=== PATIENT | female | born 1990 | race Caucasian/White ===

== ENCOUNTER 2020-11-25 20:06 | Emergency (ER) | payer MEDICAID, SELFPAY ==
[2020-11-25 20:07] VITALS: BP 146/86; PULSE 59; RESP 18; TEMP 37; O2SAT 100; BMI 34.8
--- NOTE | 2020-11-25 22:05 | CT_ITS ---
INDICATION: Pain EXAMINATION: CT Abdomen And Pelvis W/O Contrast Injection TECHNIQUE: Helically acquired images were obtained of the abdomen and pelvis without the use of IV contrast. A radiation dose optimization technique was used for this scan. Oral contrast: None. COMPARISON: None FINDINGS: Evaluation of the solid organs and vascular structures is limited without intravenous contrast. Visualized lung bases: Unremarkable Liver: Unremarkable Gallbladder: Unremarkable Spleen: Unremarkable Pancreas: Unremarkable Adrenal Glands: Unremarkable Kidneys: Unremarkable Vasculature: Unremarkable GI Tract: Status post gastric bypass surgery. Lymphadenopathy: None Peritoneum: No ascites. Bladder: Unremarkable Reproductive organs: Unremarkable Bones/Soft tissues: No suspicious osseous or soft tissue lesions CT/Abdomen/Pelvis without Cont IMPRESSION: No acute abnormalities in the abdomen or pelvis. Electronically Signed: Contreras Mccracken MD at 23:11 EDT Tel , Service support ,
--- NOTE | 2020-11-25 22:06 | EX.ED.DYSGE1 ---
HPI History of Present Illness Chief Complaint: Flank Pain Informant: patient Narrative Narrative: Patient presents with right flank pain. It started last night where she had flank pain and nausea relatively sudden onset. But it then went away after hot bath and rest. He came back this afternoon. Its been intermittent in terms of severity but never gone completely away. It is really centered in the right posterior flank area. Occasionally it radiates a little bit around toward the right lower quadrant but does not make it to the front. Nothing specifically makes it better or worse. She is also noted a little bit of blood in her urine a couple times today. Her last menstrual cycle was 1 week ago and she has no vaginal bleeding or discharge. She did have a kidney stone when she was 19 but none since. She has had a prior cholecystectomy. Nothing makes symptoms specifically better or worse. No chronic medical conditions No chronic medications Allergy are reviewed. Her allergy to NSAIDs is not due to a reaction but because she had gastric sleeve in the past. Surgeries: Gastric sleeve, cholecystectomy PFSH PFSH Allergy/AdvReac Type Severity Reaction Status Date / Time Iodinated Contrast Media Allergy Hives Verified 11/25/20 21:57 [CONTRASTS] Latex, Natural Rubber Allergy Rash Verified 11/25/20 21:57 lidocaine Allergy Rash Verified 11/25/20 21:57 NSAIDS (Non-Steroidal Allergy Upset Verified 11/25/20 21:57 Anti-Inflamma Stomach Social History Smoking Status: Never smoker ROS ROS ED Constitutional Constitutional ED: Denies chills, fever(s) or sweats Eyes Eyes: Denies change in vision ENT ENT ED: Denies rhinorrhea or sore throat Cardiovascular Cardiovascular: Denies chest pain Respiratory/Chest Respiratory/Chest: Denies cough, dyspnea or sputum Gastrointestinal Gastrointestinal: Reports nausea and vomiting; Denies constipation, diarrhea or melena Genitourinary Genitourinary ED: Reports dysuria, hematuria, urinary frequency and other Details: See history of present illness. Integumentary Denies rash Neurologic Neurologic: Denies paresthesias or weakness Endocrine Endocrinology: Denies polydipsia or polyuria Allergic/Immunologic Allergic/Immunologic ED: Denies urticaria EXAM Physical Exam Const Vital Signs: 11/25/20 20:07 11/26/20 01:00 Temperature 98.6 F Temperature Source Temporal Pulse Rate 59 L 62 Respiratory Rate 18 18 Blood Pressure 146/86 H 129/71 H Blood Pressure Mean 106 90 Pulse Ox 100 99 Oxygen Delivery Method Room Air Positive well nourished, well developed and obese Constitutional Narrative: Patient is holding an emesis bag which is currently empty. She does look like she does not feel well. General Appearance ED: well developed Nutritional Appearance: obese HEENT Reports dry mucous membranes Mouth ED: Yes dry mucous membranes Mouth: dry mucous membranes Eyes General Eye ED: Negative for pale conjunctiva or scleral icterus Neck no JVD Chest Wall inspection of chest normal Resp normal respiratory effort and clear to auscultation bilaterally Effort and Inspection: Negative for pain with movement Cardio regular rate and regular rhythm GI normal to inspection, nondistended, normoactive bowel sounds, non-tender and non-distended Palpation: soft Back/Spine Back/Spine Narrative: She does have some right CVA tenderness only with deeper palpation but not with soft touch. General Back: CVA tenderness Extremity General Extremety ED: Negative for edema or tenderness General Extremity: Negative for edema Neuro Sensorium / Orientation: alert Psych mental status grossly normal Skin no rashes or lesions noted Skin Narrative: No vesicles. MDM MDM MDM Narrative Medical decision making narrative: Patient's labs show normal white count. Mild nonspecific anemia. Electrolytes are overall unremarkable. is negative. Patient had told me she had cholecystectomy but had forgotten about the hysterectomy. We have added further meds for pain and nausea. However there is been no vomiting here. I did do an online prescribing report. I was surprised to find that the patient has 3 prescriptions for controlled substances this month. Most recent prescriptions were on the and 16 of this month for oxycodone. I tried to do a clinic thank search but cannot find any visits for this patient. We are awaiting CT scan results. CT shows no acute process. Again, blood work is unremarkable. I did online prescribing report. I noticed that the patient has in 2 years 40 prescriptions for controlled substances from 23 providers in 6 pharmacies. I discussed this with her. She states that this cannot be accurate. She used to be on gabapentin but has not been on it for 6 or 7 months. I explained that she just had a prescription filled at [facility] in [place] on the fifth of this month but it was written back in August. If this is not accurate she should check with [facility] and find out who is using her name to fill prescriptions. She is comfortable going home. I think this is likely muscular back pain. She now states she does get muscular back pain a lot. She also states that she already has Phenergan and Zofran because she has chronic problems with nausea and vomiting. I think she is safe for discharge. She has tizanidine, Tylenol, Zofran and Phenergan at home and these are appropriate to use. Lab Data Attestation: I reviewed the patient's lab results. Labs: Laboratory Results - last 24 hr 11/25/20 11/25/20 11/25/20 21:50 21:50 21:50 WBC 6.9 RBC 4.28 Hgb 11.0 L Hct 34.8 L MCV 81.3 MCH 25.7 L MCHC 31.6 L RDW Std Deviation 41.9 RDW Coeff of [place] 14.3 Plt Count 260 MPV 9.9 Immature Gran % (Auto) 0.300 Neut % (Auto) 59.2 Lymph % (Auto) 31.6 [place] % (Auto) 6.8 Eos % (Auto) 1.4 Baso % (Auto) 0.7 Absolute Neuts (auto) 4.1 Absolute Lymphs (auto) 2.19 Nucleated RBC % 0 Sodium 138 Potassium 4.5 Chloride 108 H Carbon Dioxide 25.0 Anion Gap 5 BUN 6 L Creatinine 0.68 Estim Creat Clear Calc 115.31 Est GFR (MDRD) Af Amer 134 Est GFR (MDRD) Non-Af 110 BUN/Creatinine Ratio 8.9 L Glucose 93 Calcium 8.9 Serum , Qual NEGATIVE Urine Color Urine Clarity Urine pH Ur Specific [place] Urine Protein Urine Glucose (UA) Urine Ketones Urine Occult Blood Urine Nitrite Urine Bilirubin Urine Urobilinogen Ur Leukocyte Esterase Urine RBC Urine WBC Ur Squamous Epith Cells Urine Bacteria Urine Mucus 11/25/20 11/25/20 21:50 23:36 WBC RBC Hgb Hct MCV MCH MCHC RDW Std Deviation RDW Coeff of [place] Plt Count MPV Immature Gran % (Auto) Neut % (Auto) Lymph % (Auto) [place] % (Auto) Eos % (Auto) Baso % (Auto) Absolute Neuts (auto) Absolute Lymphs (auto) Nucleated RBC % Sodium Potassium Chloride Carbon Dioxide Anion Gap BUN Creatinine Estim Creat Clear Calc Est GFR (MDRD) Af Amer Est GFR (MDRD) Non-Af BUN/Creatinine Ratio Glucose Calcium Serum , Qual Cancelled Urine Color Yellow Urine Clarity Clear Urine pH 6.0 Ur Specific [place] 1.015 Urine Protein 15 H Urine Glucose (UA) Normal Urine Ketones Negative Urine Occult Blood Negative Urine Nitrite Negative Urine Bilirubin Negative Urine Urobilinogen Normal Ur Leukocyte Esterase 25 H Urine RBC 0-5 SEEN Urine WBC 0-5 SEEN Ur Squamous Epith Cells 5-10 SEEN Urine Bacteria 1+ Urine Mucus 2+ Radiography Diagnostic Testing: Radiology Impression Abdomen/Pelvis CT 11/25/20 22:05 IMPRESSION: No acute abnormalities in the abdomen or pelvis. Electronically Signed: Contreras Mccracken MD at 23:11 EDT Tel , Service support , Discharge Plan Triage Chief Complaint: Flank Pain ED Provider: Kaleb Francois Dx/Rx/DC Orders Clinical Impression: Back pain Instructions: ED Back Pain (Acute or Chronic) Primary Care Provider: Care Physician,No Primary Referrals: Jones Freeman MD [STAFF PHYSICIAN] - 1-2 Weeks Care Physician,No Primary [Primary Care Provider] - Disposition Disposition: Home, Self Care
[2020-11-25 22:09] LABS: Internal QC Validated? YES +Cl - CLEAR BKGD; Pregnancy, Serum, hCG Quali. NEGATIVE Negative
[2020-11-25] MEDS: 0.9% Normal Saline 1,000 ML 1000 ML IV (22:22)
[2020-11-25] MEDS: Ketorolac 15 MG/ML Vial IV (22:22)
[2020-11-25] MEDS: Ondansetron 4 MG/2 ML Vial IV (22:22)
[2020-11-25] MEDS: Morphine 4 MG/ML Syringe IV ×2 (22:23→23:48)
[2020-11-25 23:02] LABS: Absolute Lymphocyte Count 2.19 X10^3/uL (0.83-4.51); Absolute Neutrophil Count 4.1 X10^3/uL (2.0-7.7); Basophil# 0.05 X10^3/uL; Basophil% 0.7 % (0-1); Eosinophils% 1.4 % (0-5); Hematocrit 34.8 % (37-47); Lymphocyte # 2.19 X10^3/ul (0.83-4.51); Lymphocyte % 31.6 % (19-41); Mean Corp Hgb Conc 31.6 g/dL (32-36); Mean Corpuscular Hgb 25.7 pg (27.0-32.0); Mean Corpuscular Volume 81.3 fL (81-99); Mean Platelet Vol. 9.9 fl (6.2-12.0); Monocyte# 0.47 X10^3/uL; Monocyte% 6.8 % (0-10); NRBC Flagged by Analyzer 0 % (0-5); Neutrophil # 4.11 X10^3/uL (2.7-7.7); Neutrophil % 59.2 % (47-70); Platelet Count 260 K/mm3 (150-450); RBC Distribution Width CV 14.3 % (11.6-14.6); RBC Distribution Width SD 41.9 fl (35.1-43.9); Red Blood Count 4.28 M/mm3 (4.2-5.4); White Blood Count 6.9 K/mm3 (4.4-11.0)
[2020-11-25 23:15] LABS: Anion Gap 5 (5-15); BUN 6 mg/dL (7-18); BUN/Creat Ratio 8.9 RATIO (10-20); Calcium,Total 8.9 mg/dL (8.5-10.1); Chloride 108 mmol/L (98-107); Creatinine, Serum 0.68 mg/dL (0.55-1.02); EST Glomerular Filtration Rate 110 mL/min (>60); Est Glom Filt Rate - Afr Amer 134 mL/min (>60); Estimated Creatinine Clearance 115.31 ml/min; Glucose 93 mg/dL (74-106); Potassium 4.5 mmol/L (3.5-5.1); Sodium Level 138 mmol/L (136-145)
[2020-11-25] MEDS: proMETHazine 25 MG/ML Syringe 12.5 MG IM (23:48)
[2020-11-26 00:15] LABS: Color, Urine Yellow (Yellow); Glucose, Dipstick Normal (Normal); Ketone-Dipstick Negative (Negative); Leukocyte Esterase-Dipstick 25 /ul (Negative); Nitrite-Dipstick Negative (Negative); Occult Blood-Urine Negative /ul (Negative); Protein-Dipstick 15 mg/dl (Negative); Specific Gravity, Urine 1.015 (1.002-1.030); Urine Bilirubin Dipstick Negative (Negative); Urine Clarity Clear (Clear); Urine Urobilinogen Normal (Normal)
[2020-11-26 00:17] LABS: Bacteria 1+ /hpf (None Seen); Mucous, Urine 2+ /hpf (<or=2+); Red Blood Cells-Urine 0-5 SEEN /hpf (0-5); Squamous Epithelial Cells - UA 5-10 SEEN /hpf (5-10); White Blood Cells 0-5 SEEN /hpf (0-5)
[2020-11-26] MEDS: 0.9% Normal Saline 1,000 ML 999 ML IV (00:32)
[2020-11-26 01:00] VITALS: BP 129/71; PULSE 62; RESP 18; O2SAT 99
== END 2020-11-26 01:45 | disposition home or self-care (01) ==
PROVIDERS: Emergency Provider Emergency Medicine
DX: M54.9 Dorsalgia, unspecified (principal); E66.9 Obesity, unspecified; Z90.49 Acquired absence of other specified parts of digestive tract
CPT/HCPCS: 74176; 80048; 81001; 84703; 85025; 96361; 96372; 96374; 96375; 96376; 99284; J7030; J2405

== ENCOUNTER 2020-12-04 21:24 | Emergency (ER) | payer MEDICAID, SELFPAY ==
[2020-12-04 21:25] VITALS: BP 122/74; PULSE 107; RESP 18; TEMP 35.8; O2SAT 100; BMI 30.7
--- NOTE | 2020-12-04 21:30 | RAD_ITS ---
EXAM: XR CHEST, 1 VIEW CLINICAL INDICATION: COUGH TECHNIQUE: Frontal view of the chest. This report was created using [employer] report generation technology. COMPARISON: None. FINDINGS: LUNGS AND PLEURAL SPACES: Unremarkable. No consolidation or edema. No pneumothorax. No effusion. HEART: Unremarkable. Cardiac silhouette not enlarged. MEDIASTINUM: Central airways and mediastinal contour are unremarkable. BONES/JOINTS: Unremarkable. SOFT TISSUES: Unremarkable. RAD/Chest 1 View IMPRESSION: No radiographic evidence of acute cardiopulmonary disease. Electronically Signed: Cal Lynn MD at 21:49 EDT , Service support ,
--- NOTE | 2020-12-04 22:41 | EDS_ITS ---
HPI History of Present Illness Chief Complaint: Abd Pain Informant: patient Narrative Narrative: 30-year-old female states that on Wednesday she began to have cold symptoms. She noted a sore throat some rhinorrhea and cough. She states she feels very chilled. She is also developed some nausea vomiting. She states that she has been exposed to Covid. No diarrhea. She describes the rhinorrhea is yellow to green. Cough is otherwise nonproductive. She notes a periumbilical to right-sided abdominal pain. PFSH PFSH Medical History (Updated 12/04/20 @ 23:[address] Venu Yeung DO) Kidney stone Ovarian cyst Home Medications promethazine 25 mg PO Q6H PRN PRN #10 tablet 12/04/20 [Rx Last Taken Unknown] Allergy/AdvReac Type Severity Reaction Status Date / Time Iodinated Contrast Media Allergy Hives Verified 11/25/20 21:57 [CONTRASTS] Latex, Natural Rubber Allergy Rash Verified 11/25/20 21:57 lidocaine Allergy Rash Verified 11/25/20 21:57 NSAIDS (Non-Steroidal Allergy Upset Verified 11/25/20 21:57 Anti-Inflamma Stomach Surgical History (Updated 12/04/20 @ 23:20 by Miriam Lynn) Hx of cholecystectomy Social History (Updated 12/04/20 @ 22:[address] Venu Yeung DO) Smoking Status: Never smoker substance use type: does not use ROS ROS ED Constitutional Constitutional ED: Reports chills and sweats; Denies weight loss Eyes Eyes: Denies change in vision or diplopia ENT ENT ED: Reports rhinorrhea and sore throat; Denies ear pain Cardiovascular Cardiovascular: Denies chest pain, orthopnea, palpitations or racing heartbeat Respiratory/Chest Respiratory/Chest: Reports cough and dyspnea; Denies orthopnea Gastrointestinal Gastrointestinal: Reports abdominal pain, nausea and vomiting; Denies diarrhea Genitourinary Genitourinary ED: Denies dysuria, hematuria or urinary frequency Musculoskeletal Musculoskeletal: Denies arthralgias or myalgias Integumentary Denies abscess or rash Neurologic Neurologic: Denies headache(s) or weakness Psychiatric Psychiatric: Denies anxiety, depression, suicidal ideation or suicidal thoughts Endocrine Endocrinology: Denies polydipsia, polyphagia or polyuria Allergic/Immunologic Allergic/Immunologic ED: Denies mouth swelling, tongue swelling or urticaria EXAM Physical Exam Const Vital Signs: 12/04/20 21:25 Temperature 96.5 F L Temperature Source Temporal Pulse Rate 107 H Respiratory Rate 18 Blood Pressure 122/74 H Blood Pressure Mean 90 Pulse Ox 100 Oxygen Delivery Method Room Air Positive well nourished, well developed and obese General Appearance ED: well developed Nutritional Appearance: obese HEENT Reports normocephalic, head/scalp atraumatic and moist mucous membranes Eyes PERRL and EOMs intact bilaterally Neck no lymphadenopathy, supple and no JVD Resp normal respiratory effort and clear to auscultation bilaterally Cardio regular rate, regular rhythm and no murmurs GI Auscultation: normoactive bowel sounds Palpation: soft and tender RLQ and periumbilical Back/Spine no CVA tenderness and normal ROM Extremity normal to inspection General Extremety ED: Negative for edema General Extremity: Negative for edema Neuro oriented x3 and CN's II-XII intact bilaterally Sensorium / Orientation: alert Motor Exam: strength 5/5 throughout Psych Mood & Affect: tearful; Negative for depressed Skin no rashes or lesions noted and no wounds MDM MDM MDM Narrative Medical decision making narrative: Patient did not inform me that she was just here in the emergency room. I did review that visit. At that time she did have a CT that was negative. Tonight's her white count was normal at 9.4 with no shift. CMP and lipase are normal. Urinalysis demonstrates no ketones and no obvious infection. Patient received IV fluids Zofran and Bentyl. She was not very happy with this. I do have some concerns because she is very focused on pain and I would refer readers of this note to her previous ED note. I talked with the patient regarding her normal labs and she states that she is very frustrated at this point and just wants to leave. Lab Data Attestation: I reviewed the patient's lab results. Labs: Laboratory Results - last 24 hr 12/04/20 12/04/20 12/04/20 22:50 23:07 23:07 WBC 9.4 RBC 4.31 Hgb 10.9 L Hct 34.2 L MCV 79.4 L MCH 25.3 L MCHC 31.9 L RDW Std Deviation 39.4 RDW Coeff of Chikis 13.5 Plt Count 233 MPV 9.9 Immature Gran % (Auto) 1.400 H Neut % (Auto) 68.6 Lymph % (Auto) 16.6 L [place] % (Auto) 10.4 H Eos % (Auto) 2.3 Baso % (Auto) 0.7 Absolute Neuts (auto) 6.4 Absolute Lymphs (auto) 1.56 Nucleated RBC % 0 Sodium 140 Potassium 3.8 Chloride 107 Carbon Dioxide 25.0 Anion Gap 8 BUN 4 L Creatinine 0.72 Estim Creat Clear Calc 108.90 Est GFR (MDRD) Af Amer 125 Est GFR (MDRD) Non-Af 103 BUN/Creatinine Ratio 5.6 L Glucose 97 Calcium 9.2 Total Bilirubin 0.20 AST 22 ALT 28 Alkaline Phosphatase 127 H Total Protein 7.6 Albumin 3.4 Globulin 4.2 Albumin/Globulin Ratio 0.8 L Lipase 121 Serum , Qual Urine Color Yellow Urine Clarity Clear Urine pH 6.0 Ur Specific [place] 1.020 Urine Protein Negative Urine Glucose (UA) Normal Urine Ketones Negative Urine Occult Blood 10 H Urine Nitrite Negative Urine Bilirubin Negative Urine Urobilinogen Normal Ur Leukocyte Esterase Negative Urine RBC 0-5 SEEN Urine WBC 0-5 SEEN Ur Squamous Epith Cells 5-10 SEEN Urine Bacteria 0 SEEN Urine Mucus 0 SEEN 12/04/20 23:15 WBC RBC Hgb Hct MCV MCH MCHC RDW Std Deviation RDW Coeff of [place]ikis Plt Count MPV Immature Gran % (Auto) Neut % (Auto) Lymph % (Auto) [place] % (Auto) Eos % (Auto) Baso % (Auto) Absolute Neuts (auto) Absolute Lymphs (auto) Nucleated RBC % Sodium Potassium Chloride Carbon Dioxide Anion Gap BUN Creatinine Estim Creat Clear Calc Est GFR (MDRD) Af Amer Est GFR (MDRD) Non-Af BUN/Creatinine Ratio Glucose Calcium Total Bilirubin AST ALT Alkaline Phosphatase Total Protein Albumin Globulin Albumin/Globulin Ratio Lipase Serum , Qual NEGATIVE Urine Color Urine Clarity Urine pH Ur Specific [place] Urine Protein Urine Glucose (UA) Urine Ketones Urine Occult Blood Urine Nitrite Urine Bilirubin Urine Urobilinogen Ur Leukocyte Esterase Urine RBC Urine WBC Ur Squamous Epith Cells Urine Bacteria Urine Mucus Radiography Diagnostic Testing: Radiology Impression Chest X-Ray 12/04/20 21:30 IMPRESSION: No radiographic evidence of acute cardiopulmonary disease. Electronically Signed: Cal Lynn MD at 21:49 EDT , Service support , Discharge Plan Triage Chief Complaint: Abd Pain ED Provider: Venu Yeung Dx/Rx/DC Orders Clinical Impression: Abdominal pain, acute, Vomiting, URI (upper respiratory infection) Instructions: ED Vomiting (Adult) Prescriptions: New promethazine [promethazine] 25 MG tablet 25 mg PO Q6H PRN PRN (Reason: Nausea) Qty: 10 RF: 0 Primary Care Provider: Care Physician,No Primary Referrals: Care Physician,No Primary [Primary Care Provider] - Activity Restrictions/Additional Instructions: Please contact your insurance company to find out who your primary care doctor is. I recommend you following up with them. Disposition Disposition: Home, Self Care
[2020-12-04] MEDS: 0.9% Normal Saline 1,000 ML 1000 ML IV (23:05)
[2020-12-04] MEDS: Dicyclomine 20 MG/2 ML Vial IM (23:06)
[2020-12-04] MEDS: Ondansetron 4 MG/2 ML Vial IV (23:06)
[2020-12-04 23:14] LABS: Bacteria 0 SEEN /hpf (None Seen); Mucous, Urine 0 SEEN /hpf (<or=2+)
[2020-12-04 23:15] LABS: Color, Urine Yellow (Yellow); Glucose, Dipstick Normal (Normal); Ketone-Dipstick Negative (Negative); Leukocyte Esterase-Dipstick Negative /ul (Negative); Nitrite-Dipstick Negative (Negative); Occult Blood-Urine 10 /ul (Negative); Protein-Dipstick Negative (Negative); Urine Bilirubin Dipstick Negative (Negative); Urine Clarity Clear (Clear); Urine Urobilinogen Normal (Normal)
[2020-12-04 23:23] LABS: Red Blood Cells-Urine 0-5 SEEN /hpf (0-5); Squamous Epithelial Cells - UA 5-10 SEEN /hpf (5-10); White Blood Cells 0-5 SEEN /hpf (0-5)
[2020-12-04 23:31] LABS: Absolute Lymphocyte Count 1.56 X10^3/uL (0.83-4.51); Absolute Neutrophil Count 6.4 X10^3/uL (2.0-7.7); Basophil# 0.07 X10^3/uL; Basophil% 0.7 % (0-1); Eosinophil# 0.22 X10^3/uL; Eosinophils% 2.3 % (0-5); Hematocrit 34.2 % (37-47); Hemoglobin 10.9 g/dL (12.0-15.0); Lymphocyte # 1.56 X10^3/ul (0.83-4.51); Lymphocyte % 16.6 % (19-41); Mean Corp Hgb Conc 31.9 g/dL (32-36); Mean Corpuscular Hgb 25.3 pg (27.0-32.0); Mean Corpuscular Volume 79.4 fL (81-99); Mean Platelet Vol. 9.9 fl (6.2-12.0); Monocyte# 0.98 X10^3/uL; Monocyte% 10.4 % (0-10); NRBC Flagged by Analyzer 0 % (0-5); Neutrophil # 6.44 X10^3/uL (2.7-7.7); Neutrophil % 68.6 % (47-70); Platelet Count 233 K/mm3 (150-450); RBC Distribution Width CV 13.5 % (11.6-14.6); RBC Distribution Width SD 39.4 fl (35.1-43.9); Red Blood Count 4.31 M/mm3 (4.2-5.4); White Blood Count 9.4 K/mm3 (4.4-11.0)
[2020-12-04 23:31] LABS: Internal QC Validated? YES +Cl - CLEAR BKGD; Pregnancy, Serum, hCG Quali. NEGATIVE Negative
[2020-12-04 23:38] LABS: ALB/GLOB Ratio 0.8 RATIO (0.9-2.4); AST(SGOT) 22 U/L (15-37); Alanine Aminotransfer ALT/SGPT 28 U/L (13-56); Albumin, Serum 3.4 g/dL (3.2-5.0); Alkaline Phosphatase 127 U/L (45-117); Anion Gap 8 (5-15); BUN 4 mg/dL (7-18); BUN/Creat Ratio 5.6 RATIO (10-20); Calcium,Total 9.2 mg/dL (8.5-10.1); Chloride 107 mmol/L (98-107); Creatinine, Serum 0.72 mg/dL (0.55-1.02); EST Glomerular Filtration Rate 103 mL/min (>60); Est Glom Filt Rate - Afr Amer 125 mL/min (>60); Globulin 4.2 g/dL (2.2-4.2); Glucose 97 mg/dL (74-106); Lipase 121 U/L (73-393); Potassium 3.8 mmol/L (3.5-5.1); Protein, Total 7.6 g/dL (6.4-8.2); Sodium Level 140 mmol/L (136-145)
--- NOTE | 2020-12-05 00:09 | ED.RN ---
PT CALLED OUT SEVERAL TIMES FOR DIFFERENT MEDICATIONS, STATES ZOFRAN AND BENTYL DID NOT WORK. ENCOURAGED PT TO WAIT AND GIVE MEDS MORE TIME TO WORK SINCE AT THAT TIME MEDS HAD ONLY BEEN GIVEN 40 MIN PRIOR. PT CALLED SEVERAL MORE TIMES FOR MEDS, MD AWARE. PT HAD INITIALLY REFUSED ZOFRAN AND BENTYL, STATING THOSE NEVER WORK FOR ME, THIS RN HAD ENCOURAGED PT TO TRY MEDS AGAIN SINCE THEY WOULD BE GIVEN IN IV AND IM FORM THEREFORE POTENTIALLY MORE EFFECTIVE. PT CALLED OUT AFTER MD OUT OF ROOM FOR DISCHARGE, STATING I'M GETTING THE FUCK OUT OF HERE SINCE YOU GUYS WON'T HELP ME. PT FURTHER YELLING THAT SHE WAS PULLING HER OWN IV OUT AND DID NOT WANT DISCHARGE PAPERS. THIS RN WENT INTO ROOM AND REMOVED IV, SITE INTACT. ATTEMPTED TO EXPLAIN WHY STRONGER MEDS WERE NOT GIVEN TO PT. SHE CONTINUED TO YELL AND CURSE AT THIS RN, THREW DISCHARGE PAPERS ON BED. PT AMBULATED OUT OF DEPARTMENT YELLING I'M GOING TO REPORT EVERY ONE OF YOU FUCKERS.
== END 2020-12-05 00:16 | disposition home or self-care (01) ==
PROVIDERS: Emergency Provider Emergency Medicine
DX: R10.9 Unspecified abdominal pain (principal); R11.2 Nausea with vomiting, unspecified; J06.9 Acute upper respiratory infection, unspecified; E66.9 Obesity, unspecified
CPT/HCPCS: 71045; 80053; 81001; 83690; 84703; 85025; 87426; 96372; 96374; 99283; J7030; J2405

== ENCOUNTER 2021-07-26 21:21 | Emergency (ER) | payer MEDICAID, SELFPAY ==
[2021-07-26 21:23] VITALS: BP 125/86; PULSE 101; RESP 14; TEMP 36.7; O2SAT 97; BMI 34.9
--- NOTE | 2021-07-26 22:52 | EDS_ITS ---
HPI History of Present Illness Chief Complaint: Flank Pain Informant: patient Onset/Context/Timing Onset: Today Context: Gradual Onset Timing: Continuous Quality: Sharp Location: Right flank Worsened by: Nothing Relieved by: Nothing Narrative Narrative: Patient presents with right flank pain, nausea, and vomiting that began today. Patient states it began when she woke up this morning. Patient states it is gradually getting worse. Patient states she started with nausea and vomiting then developed the right flank pain later in the day. Patient describes her pain as sharp. Patient states nothing makes it better nothing makes it worse. Patient admits to some urinary frequency, dysuria, and hematuria. Patient denies any hematemesis or coffee-ground emesis. Patient denies any diarrhea, melena, or hematochezia. PFSH PFS Medical History Kidney stone Ovarian cyst Home Medications promethazine 25 mg PO Q6H PRN PRN #10 tablet 12/04/20 [Rx Last Taken Unknown] gabapentin 300 mg PO TID 07/26/21 [History Last Taken Unknown] quetiapine [Seroquel] 100 mg PO QHS 07/26/21 [History Last Taken Unknown] tizanidine 4 mg PO TID PRN 07/26/21 [History Last Taken Unknown] Allergy/AdvReac Type Severity Reaction Status Date / Time Iodinated Contrast Media Allergy Hives Verified 07/26/21 21:23 [CONTRASTS] Latex, Natural Rubber Allergy Rash Verified 07/26/21 21:23 lidocaine Allergy Rash Verified 07/26/21 21:23 NSAIDS (Non-Steroidal Allergy Upset Verified 07/26/21 21:23 Anti-Inflamma Stomach Surgical History Hx of cholecystectomy Social History Smoking Status: Never smoker substance use type: does not use ROS ROS ED Constitutional Constitutional ED: Denies chills or fever(s) Eyes Eyes: Denies blurry vision or change in vision ENT ENT ED: Denies rhinorrhea or sore throat Cardiovascular Cardiovascular: Denies chest pain or palpitations Respiratory/Chest Respiratory/Chest: Denies cough or dyspnea Gastrointestinal Gastrointestinal: Reports nausea and vomiting Genitourinary Genitourinary ED: Reports dysuria, hematuria and urinary frequency Musculoskeletal Musculoskeletal: Reports back pain; Denies neck pain Integumentary Denies abscess or rash Neurologic Neurologic: Denies headache(s) or weakness Allergic/Immunologic Allergic/Immunologic ED: Denies mouth swelling or urticaria EXAM Physical Exam Const Vital Signs: 07/26/21 21:23 07/26/21 23:31 Temperature 98.1 F Temperature Source Temporal Pulse Rate 101 H 134 H Respiratory Rate 14 20 H Blood Pressure 125/86 H 119/107 H Blood Pressure Mean 99 111 Pulse Ox 97 98 Oxygen Delivery Method Room Air Room Air Positive well nourished, well developed and obese General Appearance ED: well developed and NAD Nutritional Appearance: obese HEENT Reports moist mucous membranes Neck supple and no JVD Resp normal respiratory effort and clear to auscultation bilaterally Cardio regular rate and regular rhythm GI normal to inspection, nondistended, normoactive bowel sounds Palpation: soft and tender RLQ and RUQ; Negative for guarding or rebound tenderness present Back/Spine General Back: CVA tenderness right Neuro oriented x3, CN's II-XII intact bilaterally and no sensory deficits noted Sensorium / Orientation: alert Motor Exam: strength 5/5 throughout Psych mental status grossly normal MDM MDM MDM Narrative Medical decision making narrative: Patient was given IV fluids, morphine, and Zofran. CBC shows a mild anemia with hemoglobin of 9.2 and hematocrit 31.6. Th is is consistent with prior results. Comprehensive metabolic profile was obtained and was essentially within normal limits. Serum hCG was negative. Urinalysis does not show any evidence of urinary tract infection or hematuria. CT scan of the abdomen pelvis was obtained. There is feces throughout the colon. There is no ureteral calculus or obstruction. There is no acute abnormality noted. This was interpreted by the radiologist and reviewed by myself. Patient was given a repeat dose of morphine and Zofran here. Patient was instructed to take Tylenol as needed for pain. Patient was instructed to take MiraLAX as needed for constipation. Patient was instructed to follow-up with her primary care physician in 3 to 5 days. Patient understood and was agreeable with the plan. All questions were answered. Lab Data Attestation: I reviewed the patient's lab results. Labs: Laboratory Results - last 24 hr 07/26/21 07/26/21 07/26/21 23:10 23:10 23:10 WBC 6.4 RBC 4.49 Hgb 9.2 L Hct 31.6 L MCV 70.4 L MCH 20.5 L MCHC 29.1 L RDW Std Deviation 45.8 H RDW Coeff of Chikis 18.1 H Plt Count 287 MPV 9.3 Immature Gran % (Auto) 1.100 H Neut % (Auto) 51.1 Lymph % (Auto) 35.9 [place] % (Auto) 9.1 Eos % (Auto) 1.7 Baso % (Auto) 1.1 H Absolute Neuts (auto) 3.2 Absolute Lymphs (auto) 2.28 Nucleated RBC % 0 Sodium 139 Potassium 3.5 Chloride 108 H Carbon Dioxide 25.0 Anion Gap 6 BUN 5 L Creatinine 0.60 Estim Creat Clear Calc 125.61 Est GFR (MDRD) Af Amer 152 Est GFR (MDRD) Non-Af 125 BUN/Creatinine Ratio 8.3 L Glucose 83 Calcium 8.9 Total Bilirubin 0.30 AST 52 H ALT 61 H Alkaline Phosphatase 158 H Total Protein 7.4 Albumin 3.7 Globulin 3.7 Albumin/Globulin Ratio 1.0 Serum , Qual NEGATIVE Urine Color Urine Clarity Urine pH Ur Specific [place] Urine Protein Urine Glucose (UA) Urine Ketones Urine Occult Blood Urine Nitrite Urine Bilirubin Urine Urobilinogen Ur Leukocyte Esterase Urine RBC Urine WBC Ur Squamous Epith Cells Urine Bacteria Urine Mucus 07/26/21 23:15 WBC RBC Hgb Hct MCV MCH MCHC RDW Std Deviation RDW Coeff of [place] Plt Count MPV Immature Gran % (Auto) Neut % (Auto) Lymph % (Auto) [place] % (Auto) Eos % (Auto) Baso % (Auto) Absolute Neuts (auto) Absolute Lymphs (auto) Nucleated RBC % Sodium Potassium Chloride Carbon Dioxide Anion Gap BUN Creatinine Estim Creat Clear Calc Est GFR (MDRD) Af Amer Est GFR (MDRD) Non-Af BUN/Creatinine Ratio Glucose Calcium Total Bilirubin AST ALT Alkaline Phosphatase Total Protein Albumin Globulin Albumin/Globulin Ratio Serum , Qual Urine Color Yellow Urine Clarity Clear Urine pH 6.0 Ur Specific [place] 1.020 Urine Protein 30 H Urine Glucose (UA) Normal Urine Ketones 5 H Urine Occult Blood 10 H Urine Nitrite Negative Urine Bilirubin Negative Urine Urobilinogen 1 H Ur Leukocyte Esterase 25 H Urine RBC 0 SEEN Urine WBC 0 SEEN Ur Squamous Epith Cells 0-5 SEEN Urine Bacteria 0 SEEN Urine Mucus 2+ Radiography Diagnostic Testing: Clinical Impression(s) from Imaging Studies Abdomen/Pelvis CT 07/26/21 22:55 IMPRESSION: No acute findings in the abdomen or pelvis. Colonic fecal burden suggest clinical constipation. Electronically Signed: Myke Schmitt MD at 0:19 EDT Reading Location ID and State: [address] [place] [address] Tel , Service support , Discharge Plan Triage Chief Complaint: Flank Pain ED Provider: Franco Shaver Dx/Rx/DC Orders Clinical Impression: Abdominal pain, Constipation Instructions: ED Abdominal Pain Unkn Cause Fem, ED Constipation (Adult) Prescriptions: No Action promethazine [promethazine] 25 MG tablet 25 mg PO Q6H PRN PRN (Reason: Nausea) Qty: 10 RF: 0 quetiapine [Seroquel] 100 mg Tablet 100 mg PO QHS RF: 0 gabapentin 300 mg Tablet 300 mg PO TID RF: 0 tizanidine 4 mg Capsule 4 mg PO TID PRN (Reason: pain) RF: 0 Primary Care Provider: Care Physician,No Primary Referrals: Franco Fermin MD [STAFF PHYSICIAN] - 3-5 Days Care Physician,No Primary [Primary Care Provider] - Disposition Disposition: Home, Self Care
--- NOTE | 2021-07-26 22:55 | CT_ITS ---
INDICATION: Right flank pain EXAMINATION: CT ABDOMEN AND PELVIS WITHOUT CONTRAST - CT Abdomen And Pelvis W/O Contrast Injection TECHNIQUE: Helically acquired images were obtained of the abdomen and pelvis without oral or IV contrast. A radiation dose optimization technique was used for this scan. IV Contrast dosage and agent: None. Oral contrast: None. COMPARISON: 11/25/2020 FINDINGS: LOWER CHEST: Lung bases are clear. No cardiomegaly or pericardial effusion. Small hiatal hernia. LIVER: Homogeneous. No focal mass. GALLBLADDER AND BILIARY TREE: Cholecystectomy. No intra- or extrahepatic biliary ductal dilation. PANCREAS: No focal cystic or solid mass. SPLEEN: Normal size without focal cystic or solid mass. ADRENAL GLANDS: No nodules. KIDNEYS AND URETERS: Normal renal size and position. No hydronephrosis. PERITONEUM: No ascites or free air. BOWEL: Normal appendix. No stomach or bowel distension. Diffusely increased colonic fecal burden. Changes from prior gastric surgery again noted. LYMPH NODES: No enlarged mesenteric or retroperitoneal lymph nodes. VESSELS: Aorta is non-dilated. URINARY BLADDER: Unremarkable. REPRODUCTIVE ORGANS: No pelvic masses. ABDOMINAL WALL: No discrete abdominal or pelvic wall hernia. BONES: No acute or aggressive abnormality. CT/Abdomen/Pelvis without Cont IMPRESSION: No acute findings in the abdomen or pelvis. Colonic fecal burden suggest clinical constipation. Electronically Signed: Myke Schmitt MD at 0:19 EDT ,
[2021-07-26] MEDS: 0.9% Normal Saline 1,000 ML 1000 ML IV (23:09)
[2021-07-26] MEDS: Ondansetron 4 MG/2 ML Vial IV (23:10)
[2021-07-26] MEDS: Morphine 4 MG/ML Syringe IV (23:10)
[2021-07-26 23:23] LABS: Bacteria 0 SEEN /hpf (None Seen); Color, Urine Yellow (Yellow); Glucose, Dipstick Normal (Normal); Ketone-Dipstick 5 mg/dl (Negative); Leukocyte Esterase-Dipstick 25 /ul (Negative); Nitrite-Dipstick Negative (Negative); Occult Blood-Urine 10 /ul (Negative); Protein-Dipstick 30 mg/dl (Negative); Red Blood Cells-Urine 0 SEEN /hpf (0-5); Urine Bilirubin Dipstick Negative (Negative); Urine Clarity Clear (Clear); Urine Urobilinogen 1 mg/dl (Normal); White Blood Cells 0 SEEN /hpf (0-5)
[2021-07-26 23:29] LABS: Mucous, Urine 2+ /hpf (<or=2+); Squamous Epithelial Cells - UA 0-5 SEEN /hpf (5-10)
[2021-07-26 23:29] LABS: Internal QC Validated? YES +Cl - CLEAR BKGD; Pregnancy, Serum, hCG Quali. NEGATIVE Negative
[2021-07-26 23:31] VITALS: BP 119/107; PULSE 134; RESP 20; O2SAT 98
[2021-07-26 23:36] LABS: Absolute Lymphocyte Count 2.28 X10^3/uL (0.83-4.51); Absolute Neutrophil Count 3.2 X10^3/uL (2.0-7.7); Basophil# 0.07 X10^3/uL; Basophil% 1.1 % (0-1); Eosinophil# 0.11 X10^3/uL; Eosinophils% 1.7 % (0-5); Hematocrit 31.6 % (37-47); Hemoglobin 9.2 g/dL (12.0-15.0); Lymphocyte # 2.28 X10^3/ul (0.83-4.51); Lymphocyte % 35.9 % (19-41); Mean Corp Hgb Conc 29.1 g/dL (32-36); Mean Corpuscular Hgb 20.5 pg (27.0-32.0); Mean Corpuscular Volume 70.4 fL (81-99); Mean Platelet Vol. 9.3 fl (6.2-12.0); Monocyte# 0.58 X10^3/uL; Monocyte% 9.1 % (0-10); NRBC Flagged by Analyzer 0 % (0-5); Neutrophil # 3.24 X10^3/uL (2.7-7.7); Neutrophil % 51.1 % (47-70); POSITIVE MORPHOLOGY YES; Platelet Count 287 K/mm3 (150-450); RBC Distribution Width CV 18.1 % (11.6-14.6); RBC Distribution Width SD 45.8 fl (35.1-43.9); Red Blood Count 4.49 M/mm3 (4.2-5.4); White Blood Count 6.4 K/mm3 (4.4-11.0)
[2021-07-26 23:38] LABS: AST(SGOT) 52 U/L (15-37); Alanine Aminotransfer ALT/SGPT 61 U/L (13-56); Albumin, Serum 3.7 g/dL (3.2-5.0); Alkaline Phosphatase 158 U/L (45-117); Anion Gap 6 (5-15); BUN 5 mg/dL (7-18); BUN/Creat Ratio 8.3 RATIO (10-20); Calcium,Total 8.9 mg/dL (8.5-10.1); Chloride 108 mmol/L (98-107); EST Glomerular Filtration Rate 125 mL/min (>60); Est Glom Filt Rate - Afr Amer 152 mL/min (>60); Estimated Creatinine Clearance 125.61 ml/min; Globulin 3.7 g/dL (2.2-4.2); Glucose 83 mg/dL (74-106); Potassium 3.5 mmol/L (3.5-5.1); Protein, Total 7.4 g/dL (6.4-8.2); Sodium Level 139 mmol/L (136-145)
[2021-07-26 23:39] LABS: Differential Indicated SCAN CRITERIA MET
[2021-07-27 00:27] LABS: Differential Comment SCANNED
[2021-07-27] MEDS: Ondansetron 4 MG/2 ML Vial IV (01:08)
[2021-07-27] MEDS: Morphine 2 MG/ML Syringe IV (01:09)
[2021-07-27 01:15] VITALS: BP 136/83; PULSE 99; RESP 15; O2SAT 98
== END 2021-07-27 01:16 | disposition home or self-care (01) ==
PROVIDERS: Emergency Provider Emergency Medicine; Visit Provider Emergency Medicine
DX: R10.9 Unspecified abdominal pain (principal); K59.00 Constipation, unspecified; R11.2 Nausea with vomiting, unspecified; R35.0 Frequency of micturition; R31.9 Hematuria, unspecified; R30.0 Dysuria; D64.9 Anemia, unspecified; Z79.899 Other long term (current) drug therapy
CPT/HCPCS: 74176; 80053; 81001; 84703; 85025; 96361; 96374; 96375; 96376; 99283; J7030; A4216; J2405

== ENCOUNTER 2022-01-02 16:04 | Emergency (ER) | payer MEDICAID, SELFPAY ==
[2022-01-02 16:05] VITALS: BP 155/90; PULSE 93; RESP 18; TEMP 36.4; O2SAT 100; BMI 37.7
[2022-01-02 16:20] VITALS: BP 155/90; PULSE 97; RESP 18; TEMP 36.4; O2SAT 100
--- NOTE | 2022-01-02 16:33 | CT_ITS ---
STUDY: CT Abdomen And Pelvis W/O Contrast Injection 01/02/2022 5:34 PM REASON FOR EXAM: Female, 31 years old. ABDOMINAL PAIN right flank pain. PRIOR CHOLECYSTECTOMY TECHNIQUE: Transaxial images were obtained without oral contrast, and without intravenous contrast. Individualized dose optimization techniques were used for this CT. COMPARISON: 07.26.21 FINDINGS: The visualized lung bases are unremarkable. The visualized portions of the heart are within normal limits. Unremarkable liver. There are surgical clips in the gallbladder fossa consistent with a prior cholecystectomy. Unremarkable spleen. Unremarkable pancreas. Unremarkable bilateral adrenal glands. No acute findings of the right kidney. No acute findings of the left kidney. There are multiple surgical clips around the stomach. There are also anastomotic sutures around the stomach and altered gastrointestinal anatomy. This is consistent for prior gastric surgery (this may include sleeve, Jigar, or gastric bypass and other types of gastric surgery). Unremarkable small intestine. Unremarkable colon. There is non-visualization of the appendix. There are no acute findings of the abdominal aorta. Unremarkable inferior vena cava. Subcentimeter mesenteric lymph nodes. Unremarkable urinary bladder. There is an umbilical hernia containing fat. Unremarkable osseous structures. CT/Abdomen/Pelvis without Cont IMPRESSION: (NOT LISTED IN ORDER OF SIGNIFICANCE) There are no acute findings. Other findings as above. Electronically Signed: Cal Lynn MD at 17:37 EDT ,
--- NOTE | 2022-01-02 16:37 | EX.ED.DYSGE1 ---
HPI History of Present Illness Chief Complaint: Flank Pain Informant: patient Onset/Context/Timing Onset: Days Context: Gradual Onset Current Severity: Mild Maximum Severity: Moderate Narrative Narrative: Patient presents secondary to right flank pain. She states she noted some mild pain the last couple days but thought was because she is moving. Overnight she woke up with excruciating pain wrapping and into the groin with nausea and vomiting. Shortly prior to arrival she felt the urge to urinate but had a difficult time passing any urine. When she did she passed some blood. [facility] Medical History GI bleed Kidney stone Ovarian cyst Home Medications promethazine 25 mg tablet 25 mg PO Q6H PRN PRN Nausea #10 TABLETS 12/04/20 [Rx Last Taken Unknown] gabapentin 300 mg tablet 300 mg PO TID 07/26/21 [History Last Taken Unknown] tizanidine 4 mg capsule 4 mg PO TID PRN pain 07/26/21 [History Last Taken Unknown] hydrocodone-acetaminophen 5-325mg 5mg-325mg 1 tab PO Q6H PRN pain 3 days #10 tabs 01/02/22 [Rx Last Taken Unknown] ondansetron 4 mg disintegrating tablet 4 mg PO Q8H PRN nausea and vomiting #10 tabs 01/02/22 [Rx Last Taken Unknown] Allergy/AdvReac Type Severity Reaction Status Date / Time Iodinated Contrast Media Allergy Hives Verified 01/02/22 16:05 [CONTRASTS] Latex, Natural Rubber Allergy Rash Verified 01/02/22 16:05 lidocaine Allergy Rash Verified 01/02/22 16:05 NSAIDS (Non-Steroidal Allergy Upset Verified 01/02/22 16:05 Anti-Inflamma Stomach Surgical History History of gastric bypass Hx of cholecystectomy Social History Smoking Status: Never smoker substance use type: does not use ROS ROS ED Constitutional Constitutional ED: Denies chills or fever(s) Eyes Eyes: Denies change in vision or discharge from eye(s) ENT ENT ED: Denies discharge from eye(s), rhinorrhea or sore throat Cardiovascular Cardiovascular: Denies chest pain or palpitations Respiratory/Chest Respiratory/Chest: Denies cough or dyspnea Gastrointestinal Gastrointestinal: Reports abdominal pain, nausea and vomiting; Denies diarrhea Genitourinary Genitourinary ED: Reports difficulty urinating and hematuria; Denies dysuria Musculoskeletal Musculoskeletal: Reports back pain; Denies extremity pain Integumentary Denies Abrasions or rash Neurologic Neurologic: Denies headache(s) or weakness Allergic/Immunologic Allergic/Immunologic ED: Denies lip swelling or urticaria EXAM Physical Exam Const Vital Signs: 01/02/22 16:05 01/02/22 16:20 01/02/22 16:44 Temperature 97.5 F L 97.5 F L 97.5 F L Temperature Source Temporal Temporal Temporal Pulse Rate 93 97 103 H Respiratory Rate 18 18 16 Blood Pressure 155/90 H 155/90 H 159/93 H Blood Pressure Mean 111 111 115 Pulse Ox 100 100 98 Oxygen Delivery Method Room Air Room Air Room Air 01/02/22 18:21 01/02/22 19:01 Temperature 98.6 F Temperature Source Oral Pulse Rate 83 84 Respiratory Rate 16 16 Blood Pressure 140/74 H 164/96 H Blood Pressure Mean 96 118 Pulse Ox 100 97 Oxygen Delivery Method Room Air Room Air Positive well nourished and well developed General Appearance ED: well developed HEENT Reports normocephalic and head/scalp atraumatic Eyes PERRL and EOMs intact bilaterally Neck supple Chest Wall inspection of chest normal and palpation of chest normal Resp normal respiratory effort and clear to auscultation bilaterally Cardio regular rate and regular rhythm GI non-tender Auscultation: hypoactive bowel sounds Palpation: soft Back/Spine General Back: CVA tenderness right Extremity normal to inspection Neuro oriented x3 and no sensory deficits noted Sensorium / Orientation: alert Motor Exam: strength 5/5 throughout Psych mental status grossly normal Skin no rashes or lesions noted MDM MDM MDM Narrative Medical decision making narrative: Patient initially given Toradol, Zofran, morphine along with IV fluids. Lab work obtained along with a urinalysis and CT flank. Lab Data Attestation: I reviewed the patient's lab results. Labs: Laboratory Results - last 24 hr 01/02/22 01/02/22 01/02/22 16:20 16:20 16:20 WBC 7.8 RBC 4.36 Hgb 9.1 L Hct 31.1 L MCV 71.3 L MCH 20.9 L MCHC 29.3 L RDW Std Deviation 43.9 RDW Coeff of Chikis 17.1 H Plt Count 337 MPV 9.6 Immature Gran % (Auto) 0.300 Neut % (Auto) 62.0 Lymph % (Auto) 27.2 [place] % (Auto) 7.6 Eos % (Auto) 2.3 Baso % (Auto) 0.6 Absolute Neuts (auto) 4.8 Absolute Lymphs (auto) 2.11 Nucleated RBC % 0 Sodium 141 Potassium 3.8 Chloride 111 H Carbon Dioxide 23.0 Anion Gap 7 BUN 10 Creatinine 0.78 Estim Creat Clear Calc 95.76 Est GFR (MDRD) Af Amer 112 Est GFR (MDRD) Non-Af 93 BUN/Creatinine Ratio 12.8 Glucose 111 H Calcium 9.3 Serum , Qual NEGATIVE Urine Color Urine Clarity Urine pH Ur Specific [place] Urine Protein Urine Glucose (UA) Urine Ketones Urine Occult Blood Urine Nitrite Urine Bilirubin Urine Urobilinogen Ur Leukocyte Esterase Urine RBC Urine WBC Ur Squamous Epith Cells Urine Bacteria Urine Mucus 01/02/22 16:40 WBC RBC Hgb Hct MCV MCH MCHC RDW Std Deviation RDW Coeff of [place]ikis Plt Count MPV Immature Gran % (Auto) Neut % (Auto) Lymph % (Auto) [place] % (Auto) Eos % (Auto) Baso % (Auto) Absolute Neuts (auto) Absolute Lymphs (auto) Nucleated RBC % Sodium Potassium Chloride Carbon Dioxide Anion Gap BUN Creatinine Estim Creat Clear Calc Est GFR (MDRD) Af Amer Est GFR (MDRD) Non-Af BUN/Creatinine Ratio Glucose Calcium Serum , Qual Urine Color Yellow Urine Clarity Sl. Cloudy Urine pH 6.0 Ur Specific [place] 1.020 Urine Protein Negative Urine Glucose (UA) Normal Urine Ketones Negative Urine Occult Blood 10 H Urine Nitrite Negative Urine Bilirubin Negative Urine Urobilinogen Normal Ur Leukocyte Esterase 25 H Urine RBC 0-5 SEEN Urine WBC 0-5 SEEN Ur Squamous Epith Cells 5-10 SEEN Urine Bacteria 0 SEEN Urine Mucus 0 SEEN Radiography Diagnostic Testing: Clinical Impression(s) from Imaging Studies Abdomen/Pelvis CT 01/02/22 16:33 IMPRESSION: (NOT LISTED IN ORDER OF SIGNIFICANCE) There are no acute findings. Other findings as above. Electronically Signed: Cal Lynn MD at 17:37 EDT , Treatment and Re-Evaluation Narrative: CBC and chemistry studies are unremarkable. She does have anemia with a hemoglobin of 9.1. Renal function is normal. test negative. Urinalysis reveals epithelial cells but no sign of acute infection. CT flank reveals no acute findings. Patient did require second dose of pain medication along with some Mylanta for acid reflux. Test results are discussed with the patient. At this time I advised patient she may have musculoskeletal pain that she has been moving, however with her symptoms and having hematuria earlier today and concerned that she may have passed a kidney stone and is still having some spasm. She will be given a prescription for [place] and Zofran. Return instructions have been given. Discharge Plan Triage Chief Complaint: Flank Pain ED Provider: Betsy Alamo Dx/Rx/DC Orders Clinical Impression: Right flank pain Instructions: ED Flank Pain, Uncertain Cause Prescriptions: New ondansetron 4 mg tablet,disintegrating 4 mg PO Q8H PRN (Reason: nausea and vomiting) Qty: 10 0RF hydrocodone-acetaminophen 5-325 mg tablet 1 tab PO Q6H PRN (Reason: pain) 3 Days Qty: 10 0RF No Action promethazine [promethazine] 25 MG tablet 25 mg PO Q6H PRN PRN (Reason: Nausea) Qty: 10 0RF gabapentin 300 mg Tablet 300 mg PO TID tizanidine 4 mg Capsule 4 mg PO TID PRN (Reason: pain) Primary Care Provider: Care Physician,No Primary Referrals: Melissa Almonte MD [Med Staff - Field Observer] - 1-2 Weeks Care Physician,No Primary [Primary Care Provider] - Disposition Disposition: Home, Self Care
[2022-01-02 16:42] LABS: Absolute Lymphocyte Count 2.11 X10^3/uL (0.83-4.51); Absolute Neutrophil Count 4.8 X10^3/uL (2.0-7.7); Basophil# 0.05 X10^3/uL; Basophil% 0.6 % (0-1); Eosinophil# 0.18 X10^3/uL; Eosinophils% 2.3 % (0-5); Hematocrit 31.1 % (37-47); Hemoglobin 9.1 g/dL (12.0-15.0); Lymphocyte # 2.11 X10^3/ul (0.83-4.51); Lymphocyte % 27.2 % (19-41); Mean Corp Hgb Conc 29.3 g/dL (32-36); Mean Corpuscular Hgb 20.9 pg (27.0-32.0); Mean Corpuscular Volume 71.3 fL (81-99); Mean Platelet Vol. 9.6 fl (6.2-12.0); Monocyte# 0.59 X10^3/uL; Monocyte% 7.6 % (0-10); NRBC Flagged by Analyzer 0 % (0-5); Neutrophil # 4.81 X10^3/uL (2.7-7.7); Platelet Count 337 K/mm3 (150-450); RBC Distribution Width CV 17.1 % (11.6-14.6); RBC Distribution Width SD 43.9 fl (35.1-43.9); Red Blood Count 4.36 M/mm3 (4.2-5.4); White Blood Count 7.8 K/mm3 (4.4-11.0)
[2022-01-02 16:44] VITALS: BP 159/93; PULSE 103; RESP 16; TEMP 36.4; O2SAT 98
[2022-01-02] MEDS: Ketorolac 30 MG/ML Syringe IV (16:45)
[2022-01-02] MEDS: Ondansetron 4 MG/2 ML Vial IV ×2 (16:45→19:02)
[2022-01-02] MEDS: 0.9% Normal Saline 1,000 ML 1000 ML IV (16:45)
[2022-01-02] MEDS: Morphine 4 MG/ML Syringe IV (16:46)
[2022-01-02 16:52] LABS: Internal QC Validated? YES +Cl - CLEAR BKGD; Pregnancy, Serum, hCG Quali. NEGATIVE Negative
[2022-01-02 16:53] LABS: Bacteria 0 SEEN /hpf (None Seen); Mucous, Urine 0 SEEN /hpf (<or=2+)
[2022-01-02 16:54] LABS: Anion Gap 7 (5-15); BUN 10 mg/dL (7-18); BUN/Creat Ratio 12.8 RATIO (10-20); Calcium,Total 9.3 mg/dL (8.5-10.1); Chloride 111 mmol/L (98-107); Creatinine, Serum 0.78 mg/dL (0.55-1.02); EST Glomerular Filtration Rate 93 mL/min (>60); Est Glom Filt Rate - Afr Amer 112 mL/min (>60); Estimated Creatinine Clearance 95.76 ml/min; Glucose 111 mg/dL (74-106); Potassium 3.8 mmol/L (3.5-5.1); Sodium Level 141 mmol/L (136-145)
[2022-01-02 17:03] LABS: Color, Urine Yellow (Yellow); Glucose, Dipstick Normal (Normal); Ketone-Dipstick Negative (Negative); Leukocyte Esterase-Dipstick 25 /ul (Negative); Nitrite-Dipstick Negative (Negative); Occult Blood-Urine 10 /ul (Negative); Protein-Dipstick Negative (Negative); Urine Bilirubin Dipstick Negative (Negative); Urine Clarity Sl. Cloudy (Clear); Urine Urobilinogen Normal (Normal)
[2022-01-02 17:16] LABS: Red Blood Cells-Urine 0-5 SEEN /hpf (0-5); Squamous Epithelial Cells - UA 5-10 SEEN /hpf (5-10); White Blood Cells 0-5 SEEN /hpf (0-5)
[2022-01-02] MEDS: Mag Hydrox/Al Hydrox/Simeth 30 ML UDC 15 ML PO (17:52)
[2022-01-02] MEDS: HYDROmorphone 0.5 MG/0.5 ML SYRINGE IV ×2 (18:16→19:02)
[2022-01-02 18:21] VITALS: BP 140/74; PULSE 83; RESP 16; O2SAT 100
--- NOTE | 2022-01-02 18:25 | CM.ED ---
SW Note Referral Source: Case Find Referral Reason: No Primary Care Physician (PCP) SW reviewed chart and noted that patient has no PCP. SW provided patient with list of [facility] and [facility] Physician List for reference. SW also provided patient with handout ?Where to go When?. No other issues or concerns voiced at this time. SW remains available for any additional needs. Plan: Provided patient with PCP information Birgit VEGA
[2022-01-02 19:01] VITALS: BP 164/96; PULSE 84; RESP 16; TEMP 37; O2SAT 97
[2022-01-02] MEDS: Acetaminophen 500 MG Tablet 1000 MG PO (19:03)
[2022-01-02] MEDS: 0.9% Normal Saline 1,000 ML 150 ML IV (19:03)
== END 2022-01-02 20:05 | disposition home or self-care (01) ==
PROVIDERS: Emergency Provider Emergency Medicine; Visit Provider Emergency Medicine
DX: R10.9 Unspecified abdominal pain (principal)
CPT/HCPCS: 74176; 80048; 81001; 84703; 85025; 96365; 96375; 96376; 99283; J7030; A4216; J2405

== ENCOUNTER 2022-01-18 12:51 | Emergency (ER) | payer MEDICAID, SELFPAY ==
[2022-01-18 12:52] VITALS: BP 178/103; PULSE 117; RESP 18; TEMP 35.6; O2SAT 100; BMI 33.3
--- NOTE | 2022-01-18 13:05 | EDS_ITS ---
HPI <SHIRLEY Govea - Last Filed: 01/18/22 13:07> History of Present Illness Chief Complaint: Abd Pain Narrative Narrative: 31-year-old female with history of PTSD, gastric sleeve, constipation presents to the emergency department with 2 days of right lower quadrant abdominal pain, fevers, nausea and vomiting. Patient states the nausea and vomiting started around 2 AM this morning. Patient states that walking, any sort of jarring movement caused her to have pain to her right lower quadrant. Patient dates does go through to her back. She denies any blood in her stool or vomit. Patient states he has had multiple episodes of vomitus since 2 AM this morning. Denies any sick contacts or recent antibiotic use. PFSH <SHIRLEY Govea - Last Filed: 01/18/22 13:07> [facility] Medical History GI bleed Kidney stone Ovarian cyst Home Medications promethazine 25 mg tablet 25 mg PO Q6H PRN PRN Nausea #10 TABLETS 12/04/20 [Rx Last Taken Unknown] gabapentin 300 mg tablet 300 mg PO TID 07/26/21 [History Last Taken Unknown] tizanidine 4 mg capsule 4 mg PO TID PRN pain 07/26/21 [History Last Taken Unknown] hydrocodone-acetaminophen 5-325mg 5mg-325mg 1 tab PO Q6H PRN pain 3 days #10 tabs 01/02/22 [Rx Last Taken Unknown] ondansetron 4 mg disintegrating tablet 4 mg PO Q8H PRN nausea and vomiting #10 tabs 01/02/22 [Rx Last Taken Unknown] lactulose 10 gram/15 mL oral solution 01/18/22 [History Last Taken Unknown] promethazine 25 mg tablet 25 mg PO Q6H PRN PRN Nausea #20 TABLETS 01/18/22 [Rx Last Taken Unknown] sennosides 8.6 mg tablet (Senna Laxative) mg 01/18/22 [History Last Taken Unknown] Allergy/AdvReac Type Severity Reaction Status Date / Time Iodinated Contrast Media Allergy Hives Verified 01/18/22 12:52 [CONTRASTS] Latex, Natural Rubber Allergy Rash Verified 01/18/22 12:52 lidocaine Allergy Rash Verified 01/18/22 12:52 NSAIDS (Non-Steroidal Allergy Upset Verified 01/18/22 12:52 Anti-Inflamma Stomach Surgical History History of gastric bypass Hx of cholecystectomy Social History Smoking Status: Never smoker substance use type: does not use ROS <SHIRLEY Govea - Last Filed: 01/18/22 13:07> ROS ED ROS Narrative Constitutional: Negative for fever, chills, weight loss, weakness Eyes: Negative for vision loss, vision change, double vision ENT: Negative for any sore throat, ear pain, congestion Cardiovascular: Negative for any chest pain, tightness, palpitations Respiratory: Negative for any cough, sputum production, hemoptysis, dyspnea, dyspnea on exertion, orthopnea Gastrointestinal: Negative for any diarrhea, constipation, blood in stool, blood in vomit. Positive right lower quadrant abdominal pain, nausea and vomiting : Negative for any urinary frequency, retention, blood in urine. Positive for dysuria Muscle skeletal: Negative for any muscle joint pain, stiffness, myalgias, arthralgias, neck pain, back pain Neurological: Negative for any headache, syncope, numbness or tingling, dizziness Skin: Negative for any rashes, lumps, itching, abrasions, lacerations Psychiatric: Negative for any depression, anxiety, stress, suicidal ideation, homicidal ideation Hematologic: Negative for any easy bruising, excessive bruising, easy bleeding Allergies: Negative for any eczema, hives, rash EXAM <SHIRLEY Govea - Last Filed: 01/18/22 13:07> Physical Exam Narrative Exam Narrative: Vital signs reviewed. HEET: Head normocephalic atraumatic, TMs clear bilaterally. Posterior pharynx is clear, moist mucous membranes. Nares clear bilaterally. Neck: Supple with no lymphadenopathy or tenderness. No signs of meningismus, negative jolt sign. Cardiac: Regular rate and rhythm no murmurs gallops or rubs, equal peripheral p ulses bilaterally. Respiratory: Lungs clear to auscultation bilaterally. No chest tenderness. Abdomen: Soft, nondistended. No abdominal bruit or pulsatile masses. No hepatosplenomegaly. Marked right lower quadrant abdominal pain. Extremities: No peripheral edema, no signs of gross trauma or deformity. Active full range of motion of all extremities. Neuro: Cranial nerves II through XII intact, no focal neurological deficits. Skin: Clean dry and intact with no rash, purpura, petechiae, vesicles or pustules. Backs/flank: No CVA tenderness, no midline spinal tenderness, no deformity. Negative for any CVA tenderness, the tenderness was more lower in her back Psych: Normal mood and affect. No SI, HI or acute psychosis. Const Vital Signs: 01/18/22 12:52 Temperature 96.1 F L Temperature Source Temporal Pulse Rate 117 H Respiratory Rate 18 Blood Pressure 178/103 H Blood Pressure Mean 128 Pulse Ox 100 Oxygen Delivery Method Room Air <Dr. Al Neal MD - Last Filed: 01/18/22 15:23> Physical Exam Const Vital Signs: 01/18/22 12:52 Temperature 96.1 F L Temperature Source Temporal Pulse Rate 117 H Respiratory Rate 18 Blood Pressure 178/103 H Blood Pressure Mean 128 Pulse Ox 100 Oxygen Delivery Method Room Air MDM <SHIRLEY Govea - Last Filed: 01/18/22 13:07> [facility] Lab Data Labs: Laboratory Results - last 24 hr 01/18/22 01/18/22 01/18/22 13:15 13:15 13:20 WBC 6.2 RBC 4.22 Hgb 9.0 L Hct 30.2 L MCV 71.6 L MCH 21.3 L MCHC 29.8 L RDW Std Deviation 42.5 RDW Coeff of Chikis 16.8 H Plt Count 356 MPV 9.0 Immature Gran % (Auto) 0.300 Neut % (Auto) 57.4 Lymph % (Auto) 31.8 Jackson % (Auto) 7.8 Eos % (Auto) 1.6 Baso % (Auto) 1.1 H Absolute Neuts (auto) 3.6 Absolute Lymphs (auto) 1.97 Nucleated RBC % 0 Sodium 139 Potassium 3.6 Chloride 106 Carbon Dioxide 24.0 Anion Gap 9 BUN 7 Creatinine 0.64 Estim Creat Clear Calc 116.71 Est GFR (MDRD) Af Amer 141 Est GFR (MDRD) Non-Af 117 BUN/Creatinine Ratio 11.0 Glucose 105 Calcium 9.2 Total Bilirubin 0.30 AST 21 ALT 23 Alkaline Phosphatase 115 Total Protein 7.8 Albumin 3.8 Globulin 4.0 Albumin/Globulin Ratio 1.0 Lipase 137 Urine Color Yellow Urine Clarity Sl. Cloudy Urine pH 5.0 Ur Specific Koppel 1.025 Urine Protein 15 H Urine Glucose (UA) Normal Urine Ketones 5 H Urine Occult Blood 10 H Urine Nitrite Negative Urine Bilirubin Negative Urine Urobilinogen Normal Ur Leukocyte Esterase 100 H Urine RBC 5-10 SEEN Urine WBC 0-5 SEEN Ur Squamous Epith Cells 0-5 SEEN Urine Bacteria 1+ Urine Mucus 0 SEEN Urine Test Negative Radiography Diagnostic Testing: Clinical Impression(s) from Imaging Studies Abdomen/Pelvis CT 01/18/22 13:17 IMPRESSION: Mild wall thickening of the distal colon with prominence of the basilar artery, suggesting mild colitis or possible inflammatory bowel disease. Moderate stool in the rectum. Unremarkable appendix. Mild hiatal hernia with gastric postoperative change. Cholecystectomy. Electronically Signed: Kitty Ivy MD at 14:28 EST Reading Location ID and State: [facility] / [place] Tel , Service support , <Dr. Al Neal MD - Last Filed: 01/18/22 15:23> MDM MDM Narrative Medical decision making narrative: Seen and evaluated independently and in conjunction with [employer]. Agree with notes above unless documented otherwise. Patient with gradual onset right lower quadrant pain that has been constant, not colicky, progressively worsened throughout yesterday and into the day today. Associate with nausea, anorexia, vomiting. On exam, she is tender McBurney's point mostly. Nontender distal to this in the pelvis, arguing against an ovarian etiology, she has positive obturator and psoas signs, no guarding or rebound, negative Rovsing. Given all of this, CT was ordered as opposed to ultrasound. The CT shows a significant amount of stool in the colon as well as some distal colonic inflammatory changes that are nonspecific at this time, this is not in the area where the patient is having pain or tenderness. Normal appendix seen, she has no leukocytosis, the rest for work-up is normal. She was given analgesics and did have some improvement as well as antiemetics. She was given morphine which did help, however given that she has a history of constipation, she initially said that she felt like this might be constipation, she was on Linzess in the past although she admits she was not given the official diagnosis of IBS-C, she no longer is on that and I recommend no further narcotics given the probability that she has constipation. The distal colonic inflammatory changes are of unknown significance but she does not require admission to the hospital for those findings at this time, she can safely follow-up. She states she newly moved back to this area with parents and would like referrals to primary care and GI which are given to her. She has dicyclomine at home, she is additionally prescribed Phenergan to use as needed for the symptoms. Lab Data Attestation: I reviewed the patient's lab results. Labs: Laboratory Results - last 24 hr 01/18/22 01/18/22 01/18/22 13:15 13:15 13:20 WBC 6.2 RBC 4.22 Hgb 9.0 L Hct 30.2 L MCV 71.6 L MCH 21.3 L MCHC 29.8 L RDW Std Deviation 42.5 RDW Coeff of Chikis 16.8 H Plt Count 356 MPV 9.0 Immature Gran % (Auto) 0.300 Neut % (Auto) 57.4 Lymph % (Auto) 31.8 Jackson % (Auto) 7.8 Eos % (Auto) 1.6 Baso % (Auto) 1.1 H Absolute Neuts (auto) 3.6 Absolute Lymphs (auto) 1.97 Nucleated RBC % 0 Sodium 139 Potassium 3.6 Chloride 106 Carbon Dioxide 24.0 Anion Gap 9 BUN 7 Creatinine 0.64 Estim Creat Clear Calc 116.71 Est GFR (MDRD) Af Amer 141 Est GFR (MDRD) Non-Af 117 BUN/Creatinine Ratio 11.0 Glucose 105 Calcium 9.2 Total Bilirubin 0.30 AST 21 ALT 23 Alkaline Phosphatase 115 Total Protein 7.8 Albumin 3.8 Globulin 4.0 Albumin/Globulin Ratio 1.0 Lipase 137 Urine Color Yellow Urine Clarity Sl. Cloudy Urine pH 5.0 Ur Specific Koppel 1.025 Urine Protein 15 H Urine Glucose (UA) Normal Urine Ketones 5 H Urine Occult Blood 10 H Urine Nitrite Negative Urine Bilirubin Negative Urine Urobilinogen Normal Ur Leukocyte Esterase 100 H Urine RBC 5-10 SEEN Urine WBC 0-5 SEEN Ur Squamous Epith Cells 0-5 SEEN Urine Bacteria 1+ Urine Mucus 0 SEEN Urine Test Negative Radiography Diagnostic Testing: Clinical Impression(s) from Imaging Studies Abdomen/Pelvis CT 01/18/22 13:17 IMPRESSION: Mild wall thickening of the distal colon with prominence of the basilar artery, suggesting mild colitis or possible inflammatory bowel disease. Moderate stool in the rectum. Unremarkable appendix. Mild hiatal hernia with gastric postoperative change. Cholecystectomy. Electronically Signed: Kitty vIy MD at 14:28 EST , Discharge Plan Triage Chief Complaint: Abd Pain Other Complaint: Nausea/Vomiting ED Midlevel Provider: Vinny [place] ED Provider: Al Neal Dx/Rx/DC Orders Clinical Impression: Abdominal pain, right lower quadrant, Colitis, Constipation, Vomiting Instructions: Abdominal Pain, ED Understanding Colitis Prescriptions: New promethazine [promethazine] 25 MG tablet 25 mg PO Q6H PRN PRN (Reason: Nausea) Qty: 20 0RF No Action promethazine [promethazine] 25 MG tablet 25 mg PO Q6H PRN PRN (Reason: Nausea) Qty: 10 0RF gabapentin 300 mg Tablet 300 mg PO TID tizanidine 4 mg Capsule 4 mg PO TID PRN (Reason: pain) ondansetron 4 mg tablet,disintegrating 4 mg PO Q8H PRN (Reason: nausea and vomiting) Qty: 10 0RF hydrocodone-acetaminophen 5-325 mg tablet 1 tab PO Q6H PRN (Reason: pain) 3 Days Qty: 10 0RF sennosides [Senna Laxative] 8.6 mg tablet lactulose 10 gram/15 mL solution Primary Care Provider: Care Physician,No Primary Referrals: Terrie Knowles MD [Med Staff - Dancing Instructor] - As soon as possible Friend,DO John [Med Staff - Active Staff] - (call for appt) Care Physician,No Primary [Primary Care Provider] - Disposition Disposition: Home, Self Care
[2022-01-18] MEDS: 0.9% Normal Saline 1,000 ML 1000 ML IV (13:15)
[2022-01-18] MEDS: Ondansetron 4 MG/2 ML Vial IV ×2 (13:16→14:25)
[2022-01-18] MEDS: Morphine 4 MG/ML Syringe IV ×2 (13:16→14:26)
--- NOTE | 2022-01-18 13:17 | CT_ITS ---
HISTORY: RLQ ABD PAIN, N/V SINCE YESTERDAY -- BEING PRE TREATED WITH BENADRYL FOR IODINE ALLERGY. TECHNIQUE: Helically acquired images were obtained of the abdomen and pelvis after the intravenous administration of 100mL Isovue-370. A radiation dose optimization technique was used for this scan. 423 images. COMPARISON: 01/02/2022. FINDINGS: LOWER CHEST: Lung bases clear. BOWEL: Mild hiatal hernia with gastric postoperative change again seen. Bowel including appendix nondilated. No terminal ileal or periappendiceal inflammatory change observed. Mild wall thickening of the distal transverse to sigmoid colon with prominence of the vasa recta. Moderate stool in the rectum. PERITONEUM: No significant ascites. LIVER: No enhancing mass. GALLBLADDER/BILIARY TREE: Cholecystectomy. SPLEEN/PANCREAS: Homogeneous and nonenlarged. KIDNEYS/ADRENAL GLANDS: Unremarkable. VESSELS: No abdominal aortic aneurysm. PELVIC ORGANS: Unremarkable. BONES: Intact. CT/Abdomen/Pelvis W IV Cont ONLY IMPRESSION: Mild wall thickening of the distal colon with prominence of the basilar artery, suggesting mild colitis or possible inflammatory bowel disease. Moderate stool in the rectum. Unremarkable appendix. Mild hiatal hernia with gastric postoperative change. Cholecystectomy. Electronically Signed: Kitty Ivy MD at 14:28 EST ,
[2022-01-18 13:29] LABS: Mucous, Urine 0 SEEN /hpf (<or=2+)
[2022-01-18 13:29] LABS: Absolute Lymphocyte Count 1.97 X10^3/uL (0.83-4.51); Absolute Neutrophil Count 3.6 X10^3/uL (2.0-7.7); Basophil# 0.07 X10^3/uL; Basophil% 1.1 % (0-1); Eosinophils% 1.6 % (0-5); Hematocrit 30.2 % (37-47); Lymphocyte # 1.97 X10^3/ul (0.83-4.51); Lymphocyte % 31.8 % (19-41); Mean Corp Hgb Conc 29.8 g/dL (32-36); Mean Corpuscular Hgb 21.3 pg (27.0-32.0); Mean Corpuscular Volume 71.6 fL (81-99); Monocyte# 0.48 X10^3/uL; Monocyte% 7.8 % (0-10); NRBC Flagged by Analyzer 0 % (0-5); Neutrophil # 3.55 X10^3/uL (2.7-7.7); Neutrophil % 57.4 % (47-70); Platelet Count 356 K/mm3 (150-450); RBC Distribution Width CV 16.8 % (11.6-14.6); RBC Distribution Width SD 42.5 fl (35.1-43.9); Red Blood Count 4.22 M/mm3 (4.2-5.4); White Blood Count 6.2 K/mm3 (4.4-11.0)
[2022-01-18 13:33] LABS: Color, Urine Yellow (Yellow); Glucose, Dipstick Normal (Normal); Ketone-Dipstick 5 mg/dl (Negative); Leukocyte Esterase-Dipstick 100 /ul (Negative); Nitrite-Dipstick Negative (Negative); Occult Blood-Urine 10 /ul (Negative); Protein-Dipstick 15 mg/dl (Negative); Specific Gravity, Urine 1.025 (1.002-1.030); Urine Bilirubin Dipstick Negative (Negative); Urine Clarity Sl. Cloudy (Clear); Urine Urobilinogen Normal (Normal)
[2022-01-18 13:38] LABS: AST(SGOT) 21 U/L (15-37); Alanine Aminotransfer ALT/SGPT 23 U/L (13-56); Albumin, Serum 3.8 g/dL (3.2-5.0); Alkaline Phosphatase 115 U/L (45-117); Anion Gap 9 (5-15); BUN 7 mg/dL (7-18); Calcium,Total 9.2 mg/dL (8.5-10.1); Chloride 106 mmol/L (98-107); Creatinine, Serum 0.64 mg/dL (0.55-1.02); EST Glomerular Filtration Rate 117 mL/min (>60); Est Glom Filt Rate - Afr Amer 141 mL/min (>60); Estimated Creatinine Clearance 116.71 ml/min; Glucose 105 mg/dL (74-106); Lipase 137 U/L (73-393); Potassium 3.6 mmol/L (3.5-5.1); Protein, Total 7.8 g/dL (6.4-8.2); Sodium Level 139 mmol/L (136-145)
[2022-01-18 13:52] LABS: Red Blood Cells-Urine 5-10 SEEN /hpf (0-5); Squamous Epithelial Cells - UA 0-5 SEEN /hpf (5-10); White Blood Cells 0-5 SEEN /hpf (0-5)
[2022-01-18 13:53] LABS: Bacteria 1+ /hpf (None Seen); Internal QC Validated? YES +Cl - CLEAR BKGD; Pregnancy, Urine Negative Negative
[2022-01-18] MEDS: DiphenhydrAMINE 50 MG/ML Syringe 25 MG IV (14:22)
[2022-01-18 15:34] VITALS: BP 138/72; PULSE 78; RESP 18; O2SAT 95
== END 2022-01-18 15:46 | disposition home or self-care (01) ==
PROVIDERS: Nurse Practitioner; Emergency Provider Emergency Medicine; Visit Provider Emergency Medicine
DX: R10.31 Right lower quadrant pain (principal); K52.9 Noninfective gastroenteritis and colitis, unspecified; K59.00 Constipation, unspecified; R11.10 Vomiting, unspecified
CPT/HCPCS: 74177; 80053; 81001; 81025; 83690; 85025; 96361; 96374; 96375; 96376; 99283; J7030; Q9967; A4216; J2405

== ENCOUNTER 2022-05-15 20:52 | Emergency (ER) | payer MEDICAID, SELFPAY ==
[2022-05-15 20:53] VITALS: BP 166/97; PULSE 100; RESP 18; TEMP 36.6; O2SAT 100; BMI 38.6
--- NOTE | 2022-05-15 21:27 | CT_ITS ---
We are attempting to reach an attending provider to discuss findings. An addendum with communication details will be sent when the communication is complete. STUDY: CT ABDOMEN AND PELVIS WITHOUT CONTRAST REASON FOR EXAM: Female, 31 years old. Pain RADIATION DOSAGE (If Supplied By Facility): CTDIvol = ( 16.97 ) mGy, DLP = ( 831.10 ) mGycm TECHNIQUE: Transaxial images were obtained from the dome of the diaphragm to the symphysis pubis without oral contrast, and without intravenous contrast. Sagittal and coronal images were reconstructed. Individualized dose optimization techniques were used for this CT. COMPARISON: January 18, 2022 CT scan abdomen and pelvis FINDINGS: The visualized lung bases are unremarkable. The visualized portions of the heart are within normal limits. Normal liver. There are surgical clips in the gallbladder fossa consistent with a prior cholecystectomy. Normal spleen. Normal pancreas. Normal bilateral adrenal glands. Normal right kidney. Normal left kidney. There is a small hiatal hernia. There is a thick-walled appearance of the hiatal hernia similar to the prior study. There is postoperative change in the stomach. There is a mild distended appearance of the distal small bowel with a few air-fluid levels in the low lying small bowel. There is moderate stool within the colon. There are surgical clips in the region of the appendix consistent with a prior appendectomy. Normal abdominal aorta. Normal inferior vena cava. Normal retroperitoneum. Normal urinary bladder. Normal visualized uterus. Normal abdominal wall. At the level of the superior endplate at T12 there is visualized interval loss of height of the vertebral body suggesting a compression injury. There is an approximate 5-10% loss of height. There is interval vacuum phenomenon at the level of T11-T12. There is no significant neural foraminal narrowing or central stenosis. CT/Abdomen/Pelvis without Cont IMPRESSION: Prior study January 18, 2022 there is approximately 5-10% compression injury at the level of superior endplate at T12. This may be an acute or potentially recent fracture. Best seen image #76 series 602 and image 78 series 601. Recommend correlation with trauma history. Postoperative changes stomach. Hiatal hernia mild wall thickening could consider esophagitis. Status post cholecystectomy. Mild small bowel ileus. Electronically Signed: Miriam Powell MD at 23:08 EST ,
--- NOTE | 2022-05-15 21:28 | ED.VIS.GI ---
HPI HPI - GI History of Present Illness Chief Complaint: Flank Pain Informant: patient Narrative Narrative: Patient presents with left flank pain nausea vomiting. She states that the flank pain started yesterday morning. She thought it was just a pulled muscle because it was just mildly sore. It is increased a little but not really much. It has not moved. She started with some vomiting early this morning. Mildly soft stool but no diarrhea. No blood in the vomitus or stool. No history of Crohn's or ulcerative colitis. She does not know her family history as she is adopted. She has not had fevers. She does not know anyone who is sick but has been doing traveling. Patient also had surgery for ruptured appendix and a oophorectomy what sounds like on the right about 4 weeks ago at [facility] down in [place]. She had healed well and was doing well afterwards. She has also had a gastric sleeve in 2019. She states she has had kidney stones also and thinks this could be like a kidney stone. But she is also had a lot of abdominal pain and flank pain issues that have never had a diagnosis. Her doctor called in Zofran which she has taken twice but it has not really helped a lot. [facility] Medical History GI bleed Kidney stone Ovarian cyst Home Medications promethazine 25 mg tablet 25 mg PO Q6H PRN PRN Nausea #10 TABLETS 12/04/20 [Rx Last Taken Unknown] gabapentin 300 mg tablet 300 mg PO TID 07/26/21 [History Last Taken Unknown] tizanidine 4 mg capsule 4 mg PO TID PRN pain 07/26/21 [History Last Taken Unknown] hydrocodone-acetaminophen 5-325mg 5mg-325mg 1 tab PO Q6H PRN pain 3 days #10 tabs 01/02/22 [Rx Last Taken Unknown] ondansetron 4 mg disintegrating tablet 4 mg PO Q8H PRN nausea and vomiting #10 tabs 01/02/22 [Rx Last Taken Unknown] lactulose 10 gram/15 mL oral solution 01/18/22 [History Last Taken Unknown] promethazine 25 mg tablet 25 mg PO Q6H PRN PRN Nausea #20 TABLETS 01/18/22 [Rx Last Taken Unknown] sennosides 8.6 mg tablet (Senna Laxative) mg 01/18/22 [History Last Taken Unknown] promethazine 25 mg tablet 25 mg PO Q6H PRN PRN Nausea #10 TABLETS 05/15/22 [Rx Last Taken Unknown] Allergy/AdvReac Type Severity Reaction Status Date / Time Iodinated Contrast Media Allergy Hives Verified 05/15/22 20:55 [CONTRASTS] Latex, Natural Rubber Allergy Rash Verified 05/15/22 20:55 lidocaine Allergy Rash Verified 05/15/22 20:55 NSAIDS (Non-Steroidal Allergy Upset Verified 05/15/22 20:55 Anti-Inflamma Stomach Surgical History History of gastric bypass Hx of cholecystectomy Social History Smoking Status: Never smoker substance use type: does not use ROS ROS ED Constitutional Constitutional ED: Denies chills, fever(s) or subjective ENT ENT ED: Denies rhinorrhea or sore throat Cardiovascular Cardiovascular: Denies chest pain or palpitations Respiratory/Chest Respiratory/Chest: Denies cough or dyspnea Gastrointestinal Gastrointestinal: Reports abdominal pain, nausea, vomiting and other Details: Stool has been more soft rather than true diarrhea ; Denies constipation, diarrhea or melena Genitourinary Genitourinary ED: Reports urinary frequency and other Details: Patient states she has had some more frequent urination recently but no real dysuria. Her last menstrual cycle was -01 May. She is not having bleeding or discharge or pelvic pain now. ; Denies dysuria or hematuria Musculoskeletal Musculoskeletal: Reports other Details: Left back/flank pain as in history of present illness Integumentary Denies rash Neurologic Neurologic: Denies headache(s), paresthesias or weakness Endocrine Endocrinology: Denies polydipsia or polyuria Hematologic/Lymphatic Hematologic/Lymphatic: Denies easy bleeding or easy bruising Allergic/Immunologic Allergic/Immunologic ED: Denies urticaria EXAM Physical Exam Narrative Exam Narrative: Patient is awake alert. She does not look toxic or acutely ill. HEENT shows mucous membranes are still moist. No petechiae noted. Eyes show no icterus Neck is supple. Lungs are clear bilaterally with easy breathing and no pain. O2 saturations are normal at 100% on room air showing no hypoxia. Heart is regular. Rate is about 90. No murmur gallop or rub. Peripheral pulses are normal. Abdomen is soft, does have normal bowel sounds. It does not appear to be distended. She really does not have any notable abdominal tenderness. She states it just feels sore from vomiting but the pain is not really in the abdomen as much as it is in the left paraspinal/flank area. Extremities show no tenderness. Neurologically patient is awake alert no focal deficit noted. Const Vital Signs: 05/15/22 20:53 Temperature 97.8 F Temperature Source Temporal Pulse Rate 100 Respiratory Rate 18 Blood Pressure 166/97 H Blood Pressure Mean 120 Pulse Ox 100 Oxygen Delivery Method Room Air MDM MDM MDM Narrative Medical decision making narrative: After seeing patient and placing orders, I did do an online prescribing report. Patient seemed to have accidentally forgot to tell me that she also has a prescription for narcotics just this year for 286 narcotic tablets. And this is when she lives in [facility]. These prescriptions are all local. I think this might present a issue with managing narcotics on a personal level. I do note that her liver function test are a bit up today. This may be from Tylenol. I will send off a Tylenol level as well as an INR. She has been having a large number of hydrocodone and oxycodone with Tylenol. I will also send off an alcohol level that could cause this. We are awaiting CT scan of the abdomen. CBC shows mildly low hemoglobin at 10.8. Platelets are normal white normal. Electrolytes show no marked abnormalities. No sign of dehydration at all despite not drinking for about a day and a half per patient. Potassium was minimally low at 3.4. AST was mildly up. ALT was a bit higher. Alk phos was up at 262 but bilirubin was normal. Lipase is normal. She has had some mild LFT bumps in the past. My independent interpretation of her CT of the abdomen is not showing any acute process. Possibly some mild increased fluid in the abdomen but she still has good bowel sounds and had a normal bowel movement this morning. Radiology read shows a new T12 compression fracture since January. Possible mild ileus although clinically she does not have this. I added labs to add INR normal. The level is low. Alcohol is negative. I had a talk with the patient. She does not recall any injury that would hurt her back. She does state that she fell about 3 weeks ago landed on her bottom but had no pain afterwards. I so talked to her about the large number of narcotics she has been on this year. She denied being on any narcotics now. But I explained that on the middle of April she received 30 days supply that should last her to mid May. She also received a 5-day supply 4 days ago. She did not have an answer for this. She did state that she has been on pain meds because she had a bimalleolar fracture of the ankle earlier this year. I explained that if she had a bimalleolar fracture early this year that might be the reason she was on the pain meds. But she then said it was 8 months ago. That does not explain the pain meds this year. She then stated it might have been the end of January. She for stated that she fell between concrete supports of a parking lot. She then stated that she fell down 3 steps. I am not getting a consistent story. My suspicion is that if she did fall at the end of January this was the likely the time where she had a compression fracture. Because on repeat exam she does not have any percussion tenderness in that area so I am suspicious this is at least a few weeks old. I told her I am concerned about the large number of narcotics that she has been on. I am not comfortable prescribing her more. She has bowel sounds and is moving her bowels so I do not think this represents a true ileus. But she may have symptoms and CT findings related to her narcotic use. I am also surprised when she verifies again that she had surgery 4 weeks ago for her appendix and ovary. This was done in [facility]. However she has prescriptions that were filled March 18, 2019 first, , , and the . She then had prescriptions filled April 14, , , and May 11. This does not leave a lot of time to go to [place] have acute appendicitis have surgery and then come back. It is possible she had that in early April but she is not sure of the exact date. I explained to the patient that I am happy to help. We will get her some Phenergan. She wants to go home now. I explained I will not prescribe further narcotics as I think there is an issue with narcotics and some of her problems are related to this. Lab Data Attestation: I reviewed the patient's lab results. Labs: Laboratory Results - last 24 hr 05/15/22 05/15/22 05/15/22 21:43 21:43 21:43 WBC 8.1 RBC 4.80 Hgb 10.8 L Hct 36.5 L MCV 76.0 L MCH 22.5 L MCHC 29.6 L RDW Std Deviation 69.9 H RDW Coeff of Chikis 26.5 H Plt Count 350 MPV 9.1 Immature Gran % (Auto) 1.100 H Neut % (Auto) 54.0 Lymph % (Auto) 33.1 [place] % (Auto) 9.7 Eos % (Auto) 1.4 Baso % (Auto) 0.7 Absolute Neuts (auto) 4.4 Absolute Lymphs (auto) 2.69 Nucleated RBC % 0 Differential Comment SCANNED Hypochromasia 2+ Anisocytosis 2+ Ovalocytes RARE Crenated Cell RARE PT INR Sodium 140 Potassium 3.4 L Chloride 108 H Carbon Dioxide 26.0 Anion Gap 6 BUN 7 Creatinine 0.66 Estim Creat Clear Calc 113.17 Est GFR (MDRD) Af Amer 135 Est GFR (MDRD) Non-Af 112 BUN/Creatinine Ratio 10.6 Glucose 104 Calcium 9.3 Total Bilirubin 0.30 AST 48 H ALT 129 H Alkaline Phosphatase 262 H Total Protein 8.0 Albumin 3.8 Globulin 4.2 Albumin/Globulin Ratio 0.9 Lipase 182 Serum , Qual NEGATIVE Urine Color Urine Clarity Urine pH Ur Specific Turner Urine Protein Urine Glucose (UA) Urine Ketones Urine Occult Blood Urine Nitrite Urine Bilirubin Urine Urobilinogen Ur Leukocyte Esterase Urine RBC Urine WBC Ur Squamous Epith Cells Urine Bacteria Urine Mucus Acetaminophen Ethyl Alcohol 05/15/22 05/15/22 05/15/22 21:43 21:50 21:50 WBC RBC Hgb Hct MCV MCH MCHC RDW Std Deviation RDW Coeff of Chikis Plt Count MPV Immature Gran % (Auto) Neut % (Auto) Lymph % (Auto) [place] % (Auto) Eos % (Auto) Baso % (Auto) Absolute Neuts (auto) Absolute Lymphs (auto) Nucleated RBC % Differential Comment Hypochromasia Anisocytosis Ovalocytes Crenated Cell PT INR Sodium Potassium Chloride Carbon Dioxide Anion Gap BUN Creatinine Estim Creat Clear Calc Est GFR (MDRD) Af Amer Est GFR (MDRD) Non-Af BUN/Creatinine Ratio Glucose Calcium Total Bilirubin AST ALT Alkaline Phosphatase Total Protein Albumin Globulin Albumin/Globulin Ratio Lipase Serum , Qual Urine Color Yellow Urine Clarity Clear Urine pH 6.5 Ur Specific Turner 1.020 Urine Protein 30 H Urine Glucose (UA) Normal Urine Ketones 5 H Urine Occult Blood Negative Urine Nitrite Negative Urine Bilirubin 1 H Urine Urobilinogen 1 H Ur Leukocyte Esterase 25 H Urine RBC Not Reportable Urine WBC 0-5 SEEN Ur Squamous Epith Cells 0-5 SEEN Urine Bacteria 0 SEEN Urine Mucus RARE Acetaminophen 5.4 L Ethyl Alcohol < 3.0 05/15/22 23:15 WBC RBC Hgb Hct MCV MCH MCHC RDW Std Deviation RDW Coeff of Chikis Plt Count MPV Immature Gran % (Auto) Neut % (Auto) Lymph % (Auto) [place] % (Auto) Eos % (Auto) Baso % (Auto) Absolute Neuts (auto) Absolute Lymphs (auto) Nucleated RBC % Differential Comment Hypochromasia Anisocytosis Ovalocytes Crenated Cell PT 11.9 INR 0.9 Sodium Potassium Chloride Carbon Dioxide Anion Gap BUN Creatinine Estim Creat Clear Calc Est GFR (MDRD) Af Amer Est GFR (MDRD) Non-Af BUN/Creatinine Ratio Glucose Calcium Total Bilirubin AST ALT Alkaline Phosphatase Total Protein Albumin Globulin Albumin/Globulin Ratio Lipase Serum , Qual Urine Color Urine Clarity Urine pH Ur Specific Turner Urine Protein Urine Glucose (UA) Urine Ketones Urine Occult Blood Urine Nitrite Urine Bilirubin Urine Urobilinogen Ur Leukocyte Esterase Urine RBC Urine WBC Ur Squamous Epith Cells Urine Bacteria Urine Mucus Acetaminophen Ethyl Alcohol Radiography Diagnostic Testing: Clinical Impression(s) from Imaging Studies Abdomen/Pelvis CT 05/15/22 21:27 IMPRESSION: Prior study January 18, 2022 there is approximately 5-10% compression injury at the level of superior endplate at T12. This may be an acute or potentially recent fracture. Best seen image #76 series 602 and image 78 series 601. Recommend correlation with trauma history. Postoperative changes stomach. Hiatal hernia mild wall thickening could consider esophagitis. Status post cholecystectomy. Mild small bowel ileus. Electronically Signed: Miriam Powell MD at 23:08 EST Reading Location ID and State: [facility] / [place] Tel , Service support , ADDENDUM: 05/15/22 2319 IMPRESSION: Prior study January 18, 2022 there is approximately 5-10% compression injury at the level of superior endplate at T12. This may be an acute or potentially recent fracture. Best seen image #76 series 602 and image 78 series 601. Recommend correlation with trauma history. Postoperative changes stomach. Hiatal hernia mild wall thickening could consider esophagitis. Status post cholecystectomy. Mild small bowel ileus. N.B. : The above Results were Read Back by Miriam Powell MD to KALEB BATISTA MD, and understanding confirmed on 05/15/2022 23:12:18 (ET). Electronically Signed: Miriam Powell MD at 23:08 EST , Discharge Plan Triage Chief Complaint: Flank Pain ED Provider: Kaleb Batista Dx/Rx/DC Orders Clinical Impression: Nausea & vomiting, Abdominal pain, T12 compression fracture, Narcotic habituation, continuous, Narcotic bowel syndrome Instructions: Abdominal Pain, ED Vomiting (Adult) Prescriptions: New promethazine [promethazine] 25 mg tablet 25 mg PO Q6H PRN PRN (Reason: Nausea) Qty: 10 0RF No Action promethazine [promethazine] 25 MG tablet 25 mg PO Q6H PRN PRN (Reason: Nausea) Qty: 10 0RF gabapentin 300 mg Tablet 300 mg PO TID tizanidine 4 mg Capsule 4 mg PO TID PRN (Reason: pain) ondansetron 4 mg tablet,disintegrating 4 mg PO Q8H PRN (Reason: nausea and vomiting) Qty: 10 0RF hydrocodone-acetaminophen 5-325 mg tablet 1 tab PO Q6H PRN (Reason: pain) 3 Days Qty: 10 0RF sennosides [Senna Laxative] 8.6 mg tablet lactulose 10 gram/15 mL solution promethazine [promethazine] 25 MG tablet 25 mg PO Q6H PRN PRN (Reason: Nausea) Qty: 20 0RF Primary Care Provider: Care Physician,No Primary Referrals: Care Physician,No Primary [Primary Care Provider] - Disposition Disposition: Home, Self Care
[2022-05-15 21:48] LABS: Bacteria 0 SEEN /hpf (None Seen)
[2022-05-15] MEDS: Morphine 4 MG/ML Syringe IV (21:50)
[2022-05-15] MEDS: 0.9% Normal Saline 1,000 ML 1000 ML IV (21:50)
[2022-05-15] MEDS: proMETHazine 25 MG/ML Syringe 12.5 MG IM (21:51)
[2022-05-15 21:52] LABS: Absolute Lymphocyte Count 2.69 X10^3/uL (0.83-4.51); Absolute Neutrophil Count 4.4 X10^3/uL (2.0-7.7); Basophil# 0.06 X10^3/uL; Basophil% 0.7 % (0-1); Eosinophil# 0.11 X10^3/uL; Eosinophils% 1.4 % (0-5); Hematocrit 36.5 % (37-47); Hemoglobin 10.8 g/dL (12.0-15.0); Lymphocyte # 2.69 X10^3/ul (0.83-4.51); Lymphocyte % 33.1 % (19-41); Mean Corp Hgb Conc 29.6 g/dL (32-36); Mean Corpuscular Hgb 22.5 pg (27.0-32.0); Mean Platelet Vol. 9.1 fl (6.2-12.0); Monocyte# 0.79 X10^3/uL; Monocyte% 9.7 % (0-10); NRBC Flagged by Analyzer 0 % (0-5); Neutrophil # 4.38 X10^3/uL (2.7-7.7); POSITIVE MORPHOLOGY YES; Platelet Count 350 K/mm3 (150-450); RBC Distribution Width CV 26.5 % (11.6-14.6); RBC Distribution Width SD 69.9 fl (35.1-43.9); White Blood Count 8.1 K/mm3 (4.4-11.0)
[2022-05-15 21:55] LABS: Color, Urine Yellow (Yellow); Glucose, Dipstick Normal (Normal); Ketone-Dipstick 5 mg/dl (Negative); Leukocyte Esterase-Dipstick 25 /ul (Negative); Nitrite-Dipstick Negative (Negative); Occult Blood-Urine Negative /ul (Negative); Protein-Dipstick 30 mg/dl (Negative); Urine Clarity Clear (Clear); Urine Urobilinogen 1 mg/dl (Normal); Urine pH 6.5 (5.0 - 8.0)
[2022-05-15 21:59] LABS: Differential Indicated SCAN CRITERIA MET; Urine Bilirubin Dipstick 1 mg/dL (Negative)
[2022-05-15 22:00] LABS: Internal QC Validated? YES +Cl - CLEAR BKGD; Pregnancy, Serum, hCG Quali. NEGATIVE Negative
[2022-05-15 22:03] LABS: Mucous, Urine RARE /hpf (<or=2+); Squamous Epithelial Cells - UA 0-5 SEEN /hpf (5-10); White Blood Cells 0-5 SEEN /hpf (0-5)
[2022-05-15 22:09] LABS: ALB/GLOB Ratio 0.9 RATIO (0.9-2.4); AST(SGOT) 48 U/L (15-37); Alanine Aminotransfer ALT/SGPT 129 U/L (13-56); Albumin, Serum 3.8 g/dL (3.2-5.0); Alkaline Phosphatase 262 U/L (45-117); Anion Gap 6 (5-15); BUN 7 mg/dL (7-18); BUN/Creat Ratio 10.6 RATIO (10-20); Calcium,Total 9.3 mg/dL (8.5-10.1); Chloride 108 mmol/L (98-107); Creatinine, Serum 0.66 mg/dL (0.55-1.02); EST Glomerular Filtration Rate 112 mL/min (>60); Est Glom Filt Rate - Afr Amer 135 mL/min (>60); Estimated Creatinine Clearance 113.17 ml/min; Globulin 4.2 g/dL (2.2-4.2); Glucose 104 mg/dL (74-106); Lipase 182 U/L (73-393); Potassium 3.4 mmol/L (3.5-5.1); Sodium Level 140 mmol/L (136-145)
[2022-05-15 22:32] LABS: Anisocytosis 2+; Crenated RBC RARE; Differential Comment SCANNED; Hypochromasia 2+; Ovalocyte RARE
[2022-05-15] MEDS: DiphenhydrAMINE 50 MG/ML Syringe 25 MG IV (22:46)
[2022-05-15 23:09] LABS: Alcohol, Blood (Medical)-Serum < 3.0 mg/dL
--- NOTE | 2022-05-15 23:18 | ED.RN ---
0393 PT BECAME VERY ANGRY THAT MORE LABS WERE BEING DRAWN AND DID NOT LIKE IT BEING TAKEN FROM HER IV. EXPLAINED TO HER THE GOAL IS TO KEEP HER FROM GETTING ANOTHER NEEDLE STICK TO OBTAIN THE BLOOD SPECIMEN.
[2022-05-15 23:24] LABS: Acetaminophen (Tylenol) Level 5.4 ug/mL (10.0-30.0)
[2022-05-15 23:28] LABS: International Normalized Ratio 0.9; Prothrombin Time (Protime)PT. 11.9 SECONDS (11.7-14.9)
--- NOTE | 2022-05-15 23:50 | ED.RN ---
SPOKE TO PT AND HE STATED PT WOULD BE DISCHARGED,WENT TO ROOM TO TAKE IV OUT AND TOLD HER SHE COULD GET DRESSED. PT REFUSED GETTING HER IV BEING REMOVED BY THIS NURSE,I DON'T FEEL COMFORTABLE LETTING YOU TOUCHED MY IV,I WANT SOMEONE ELSE TO. CHARGE NURSE RN, GARY MADE AWARE OF THE ABOVE.
[2022-05-16 00:12] VITALS: BP 149/89; PULSE 76; RESP 16; O2SAT 98
== END 2022-05-16 00:13 | disposition home or self-care (01) ==
PROVIDERS: Emergency Provider Emergency Medicine; Visit Provider Emergency Medicine
DX: R11.2 Nausea with vomiting, unspecified (principal); M48.54XA Collapsed vertebra, not elsewhere classified, thoracic region, initial encounter for fracture; R10.9 Unspecified abdominal pain
CPT/HCPCS: 74176; 80053; 80329; 81001; 82077; 83690; 84703; 85025; 85610; 96361; 96372; 96374; 96375; 99283; J7030; A4216; G0480

== ENCOUNTER 2022-07-18 14:58 | Emergency (ER) | payer MEDICAID, SELFPAY ==
[2022-07-18 14:59] VITALS: BP 137/65; PULSE 118; RESP 18; TEMP 36.1; O2SAT 100; BMI 38.1
--- NOTE | 2022-07-18 15:23 | CT_ITS ---
STUDY: CT Abdomen And Pelvis W/O Contrast Injection 07/18/2022 6:11 PM REASON FOR EXAM: Female, 31 years old. ABDOMINAL PAIN R flank pain TECHNIQUE: Transaxial images were obtained without oral contrast, and without intravenous contrast. Individualized dose optimization techniques were used for this CT. COMPARISON: 05.15.22. FINDINGS: The visualized lung bases are unremarkable. The visualized portions of the heart are within normal limits. Unremarkable liver. There are surgical clips in the gallbladder fossa consistent with a prior cholecystectomy. Unremarkable spleen. Unremarkable pancreas. Unremarkable bilateral adrenal glands. No acute findings of the right kidney. No acute findings of the left kidney. There are multiple surgical clips around the stomach. There are also anastomotic sutures around the stomach and altered gastrointestinal anatomy. This is consistent for prior gastric surgery (this may include sleeve, Jigar, or gastric bypass and other types of gastric surgery). Unremarkable small intestine. Unremarkable colon. The appendix is visualized and appears unremarkable. There are no acute findings of the abdominal aorta. Unremarkable inferior vena cava. Subcentimeter mesenteric lymph nodes. Unremarkable urinary bladder. Unremarkable abdominal wall. Stable T12 compression deformity. CT/Abdomen/Pelvis without Cont IMPRESSION: (NOT LISTED IN ORDER OF SIGNIFICANCE) Stable T12 compression deformity. Other findings as above. Electronically Signed: Cal Lynn MD at 18:14 EDT ,
--- NOTE | 2022-07-18 15:24 | EX.ED.DYSGE1 ---
HPI History of Present Illness Chief Complaint: Nausea/Vomiting Informant: patient Onset/Context/Timing Onset: Yesterday Context: Gradual Onset Narrative Narrative: Patient started feeling poorly last night with nausea and vomiting no other symptoms. Woke up this morning with pain in her right low back, then when she went to urinate, she has noticed some blood, urgency, hesitancy. No dysuria. No urinary retention but she does have that sensation. No abdominal pain. No fevers or chills. Continuing to be nauseated and have occasional vomiting, nonbloody. History of a kidney stone wonders if that is what is causing this. She had one when she was 20 years old long time ago. [facility] Medical History (Updated 07/18/22 @ 18:[address] Al Neal MD) Anemia Bipolar disorder Depression GI bleed Kidney stone Ovarian cyst Home Medications promethazine 25 mg tablet 25 mg PO Q6H PRN PRN Nausea #10 TABLETS 12/04/20 [Rx Last Taken Unknown] gabapentin 300 mg tablet 300 mg PO TID 07/26/21 [History Last Taken Unknown] tizanidine 4 mg capsule 4 mg PO TID PRN pain 07/26/21 [History Last Taken Unknown] hydrocodone-acetaminophen 5-325mg 5mg-325mg 1 tab PO Q6H PRN pain 3 days #10 tabs 01/02/22 [Rx Last Taken Unknown] ondansetron 4 mg disintegrating tablet 4 mg PO Q8H PRN nausea and vomiting #10 tabs 01/02/22 [Rx Last Taken Unknown] lactulose 10 gram/15 mL oral solution 01/18/22 [History Last Taken Unknown] promethazine 25 mg tablet 25 mg PO Q6H PRN PRN Nausea #20 TABLETS 01/18/22 [Rx Last Taken Unknown] sennosides 8.6 mg tablet (Senna Laxative) mg 01/18/22 [History Last Taken Unknown] promethazine 25 mg tablet 25 mg PO Q6H PRN PRN Nausea #10 TABLETS 05/15/22 [Rx Last Taken Unknown] Allergy/AdvReac Type Severity Reaction Status Date / Time Iodinated Contrast Media Allergy Hives Verified 07/18/22 14:59 [CONTRASTS] Latex, Natural Rubber Allergy Rash Verified 07/18/22 14:59 lidocaine Allergy Rash Verified 07/18/22 14:59 NSAIDS (Non-Steroidal Allergy Upset Verified 07/18/22 14:59 Anti-Inflamma Stomach Surgical History History of gastric bypass Hx of cholecystectomy Social History Smoking Status: Never smoker substance use type: does not use ROS ROS ED Constitutional Constitutional ED: Denies chills or fever(s) Eyes Eyes: Denies change in vision or diplopia ENT ENT ED: Denies rhinorrhea or sore throat Cardiovascular Cardiovascular: Denies chest pain or palpitations Respiratory/Chest Respiratory/Chest: Denies cough or dyspnea Gastrointestinal Gastrointestinal: Reports nausea and vomiting; Denies abdominal pain or diarrhea Genitourinary Genitourinary ED: Reports as per HPI, hematuria and urinary frequency; Denies dysuria Musculoskeletal Musculoskeletal: Reports back pain; Denies neck pain Integumentary Denies abscess or rash Neurologic Neurologic: Denies headache(s), paresthesias or weakness Psychiatric Psychiatric: Denies anxiety or suicidal thoughts EXAM Physical Exam Const Vital Signs: 07/18/22 14:59 07/18/22 15:53 Temperature 97.0 F L 98.6 F Temperature Source Temporal Oral Pulse Rate 118 H 103 H Respiratory Rate 18 16 Blood Pressure 137/65 H 138/97 H Blood Pressure Mean 89 110 Pulse Ox 100 98 Oxygen Delivery Method Room Air Room Air Positive well nourished and well developed General Appearance ED: well developed and NAD HEENT Reports moist mucous membranes normocephalic and atraumatic Eyes PERRL and EOMs intact bilaterally Neck full ROM and supple Resp normal respiratory effort and clear to auscultation bilaterally Cardio regular rate, regular rhythm and no murmurs Rate: tachycardic GI non-tender and non-distended Auscultation: normoactive bowel sounds Palpation: soft Back/Spine Back/Spine Narrative: Right CVA tenderness none on left. Normal inspection no rash General Back: other FROM Extremity normal to inspection General Extremety ED: Negative for edema, pulses abnormal or tenderness General Extremity: Negative for edema or pulses abnormal Neuro oriented x3, CN's II-XII intact bilaterally and no sensory deficits noted Sensorium / Orientation: awake and alert Motor Exam: strength 5/5 throughout Psych mental status grossly normal Skin no rashes or lesions noted and no wounds MDM MDM MDM Narrative Medical decision making narrative: While not an exhaustive/exclusive list, differential mainly includes cystitis, pyelonephritis, ureterolithiasis/urolithiasis. Therefore she was given medications avoiding NSAIDs given her gastric bypass, as well as testing urine, ruling out , doing labs and a CT to evaluate for stone. Labs unremarkable, urinalysis shows no infection nor , obtained a CT of the abdomen/pelvis given her symptoms and it is negative for anything acute. I reviewed the images and I agree with the radiologist's interpretation. She does have a T12 compression superior endplate, this is old and unchanged. Because of department volume, stroke, and other reasons the CT interpretation was delayed significantly. In the meantime, the patient was given morphine and Zofran, and she said she needed more for her pain. She had some itching with the morphine. She had no rash or drop in her blood pressure and I suggested that this was probably just histamine release and not a true allergic reaction, this was treated successfully with Benadryl. She wanted more for pain in the meantime while we were waiting on interpretations and lab results she was given fentanyl 50 mcg. Charge nurse stop by and she mentioned something about Dilaudid helping with her pain, which I am not giving her I do not think she needs Dilaudid. I discussed this with the patient she understood, and I told her we would await the CT interpretation and if she had something that she needed to be admitted for that was very painful we could consider more narcotics but otherwise I do not think they are indicated. I gave her a dose of dicyclomine prior to discharge, questioning the possibility of colonic spasms causing her discomfort but I do not know what is causing this pain. It could be musculoskeletal and/were related to her prior compression fracture which appears to have occurred from a fall according to my review of prior ED record. At this time, she is stable to be discharged home. She does have persistent nausea so I am happy to treat her with Reglan prior to discharge -- she refused the Reglan because it gives her akathisia and instead wanted another dose of Zofran which will be given. Furthermore I reviewed the patient's [facility] report. She was prescribed hydrocodone 7.5 mg tablets 10 days ago for #120 tablets. Definitely does not need a new prescription for narcotic at this time, which she appears to receive monthly from another provider. History & Record Review Additional record(s) reviewed:: Prior ED visit Lab Data Attestation: I reviewed the patient's lab results. Labs: Laboratory Results - last 24 hr 07/18/22 07/18/22 07/18/22 15:30 15:30 15:32 WBC 8.9 RBC 4.49 Hgb 10.1 L Hct 33.6 L MCV 74.8 L MCH 22.5 L MCHC 30.1 L RDW Std Deviation 48.5 H RDW Coeff of [place] 17.9 H Plt Count 330 MPV 9.0 Immature Gran % (Auto) 0.300 Neut % (Auto) 71.8 H Lymph % (Auto) 21.0 [place] % (Auto) 5.4 Eos % (Auto) 0.8 Baso % (Auto) 0.7 Absolute Neuts (auto) 6.4 Absolute Lymphs (auto) 1.86 Nucleated RBC % 0 Sodium 141 Potassium 3.9 Chloride 110 H Carbon Dioxide 24.0 Anion Gap 7 BUN 11 Creatinine 0.67 Estim Creat Clear Calc 111.48 Est GFR (MDRD) Af Amer 133 Est GFR (MDRD) Non-Af 110 BUN/Creatinine Ratio 16.4 Glucose 106 Calcium 9.2 Urine Color Yellow Urine Clarity Clear Urine pH 6.5 Ur Specific [place] 1.015 Urine Protein 15 H Urine Glucose (UA) Normal Urine Ketones 5 H Urine Occult Blood 10 H Urine Nitrite Negative Urine Bilirubin Negative Urine Urobilinogen 1 H Ur Leukocyte Esterase 25 H Urine RBC 0 SEEN Urine WBC 0 SEEN Ur Squamous Epith Cells 0-5 SEEN Urine Bacteria 0 SEEN Urine Mucus 2+ Urine Test Negative Radiography Diagnostic Testing: Clinical Impression(s) from Imaging Studies Abdomen/Pelvis CT 07/18/22 15:23 IMPRESSION: (NOT LISTED IN ORDER OF SIGNIFICANCE) Stable T12 compression deformity. Other findings as above. Electronically Signed: Cal Lynn MD at 18:14 EDT , Discharge Plan Triage Chief Complaint: Nausea/Vomiting Other Complaint: Back ED Provider: Al Neal Dx/Rx/DC Orders Clinical Impression: Low back pain, Vomiting Instructions: ED Back Pain (Acute or Chronic) Prescriptions: No Action promethazine [promethazine] 25 MG tablet 25 mg PO Q6H PRN PRN (Reason: Nausea) Qty: 10 0RF gabapentin 300 mg Tablet 300 mg PO TID tizanidine 4 mg Capsule 4 mg PO TID PRN (Reason: pain) ondansetron 4 mg tablet,disintegrating 4 mg PO Q8H PRN (Reason: nausea and vomiting) Qty: 10 0RF hydrocodone-acetaminophen 5-325 mg tablet 1 tab PO Q6H PRN (Reason: pain) 3 Days Qty: 10 0RF sennosides [Senna Laxative] 8.6 mg tablet lactulose 10 gram/15 mL solution promethazine [promethazine] 25 MG tablet 25 mg PO Q6H PRN PRN (Reason: Nausea) Qty: 20 0RF promethazine [promethazine] 25 mg tablet 25 mg PO Q6H PRN PRN (Reason: Nausea) Qty: 10 0RF Primary Care Provider: Care Physician,No Primary Referrals: Doctor,Your [Non-Staff] - 3-5 Days if not improving Disposition Disposition: Home, Self Care
[2022-07-18] MEDS: Morphine 4 MG/ML Syringe IV (15:32)
[2022-07-18] MEDS: Ondansetron 4 MG/2 ML Vial IV ×2 (15:32→18:56)
[2022-07-18 15:41] LABS: Absolute Lymphocyte Count 1.86 X10^3/uL (0.83-4.51); Absolute Neutrophil Count 6.4 X10^3/uL (2.0-7.7); Basophil# 0.06 X10^3/uL; Basophil% 0.7 % (0-1); Eosinophil# 0.07 X10^3/uL; Eosinophils% 0.8 % (0-5); Hematocrit 33.6 % (37-47); Hemoglobin 10.1 g/dL (12.0-15.0); Lymphocyte # 1.86 X10^3/ul (0.83-4.51); Mean Corp Hgb Conc 30.1 g/dL (32-36); Mean Corpuscular Hgb 22.5 pg (27.0-32.0); Mean Corpuscular Volume 74.8 fL (81-99); Monocyte# 0.48 X10^3/uL; Monocyte% 5.4 % (0-10); NRBC Flagged by Analyzer 0 % (0-5); Neutrophil # 6.35 X10^3/uL (2.7-7.7); Neutrophil % 71.8 % (47-70); Platelet Count 330 K/mm3 (150-450); RBC Distribution Width CV 17.9 % (11.6-14.6); RBC Distribution Width SD 48.5 fl (35.1-43.9); Red Blood Count 4.49 M/mm3 (4.2-5.4); White Blood Count 8.9 K/mm3 (4.4-11.0)
[2022-07-18 15:42] LABS: Bacteria 0 SEEN /hpf (None Seen); Red Blood Cells-Urine 0 SEEN /hpf (0-5); White Blood Cells 0 SEEN /hpf (0-5)
[2022-07-18 15:53] VITALS: BP 138/97; PULSE 103; RESP 16; TEMP 37; O2SAT 98
[2022-07-18 16:13] LABS: Color, Urine Yellow (Yellow); Glucose, Dipstick Normal (Normal); Ketone-Dipstick 5 mg/dl (Negative); Leukocyte Esterase-Dipstick 25 /ul (Negative); Nitrite-Dipstick Negative (Negative); Occult Blood-Urine 10 /ul (Negative); Protein-Dipstick 15 mg/dl (Negative); Specific Gravity, Urine 1.015 (1.002-1.030); Urine Bilirubin Dipstick Negative (Negative); Urine Clarity Clear (Clear); Urine Urobilinogen 1 mg/dl (Normal); Urine pH 6.5 (5.0 - 8.0)
[2022-07-18] MEDS: DiphenhydrAMINE 50 MG/ML Syringe 25 MG IV (16:15)
[2022-07-18] MEDS: fentaNYL 100 MCG/2 ML Ampul 50 MCG IV (16:17)
[2022-07-18 16:21] LABS: Anion Gap 7 (5-15); BUN 11 mg/dL (7-18); BUN/Creat Ratio 16.4 RATIO (10-20); Calcium,Total 9.2 mg/dL (8.5-10.1); Chloride 110 mmol/L (98-107); Creatinine, Serum 0.67 mg/dL (0.55-1.02); EST Glomerular Filtration Rate 110 mL/min (>60); Est Glom Filt Rate - Afr Amer 133 mL/min (>60); Estimated Creatinine Clearance 111.48 ml/min; Glucose 106 mg/dL (74-106); Potassium 3.9 mmol/L (3.5-5.1); Sodium Level 141 mmol/L (136-145)
[2022-07-18 16:30] LABS: Internal QC Validated? YES +Cl - CLEAR BKGD; Mucous, Urine 2+ /hpf (<or=2+); Pregnancy, Urine Negative Negative; Squamous Epithelial Cells - UA 0-5 SEEN /hpf (5-10)
[2022-07-18] MEDS: Dicyclomine 10 MG Capsule 20 MG PO (18:56)
[2022-07-18 19:02] VITALS: PULSE 98; RESP 18; O2SAT 100
[2022-07-18 19:06] VITALS: BP 139/88
== END 2022-07-18 19:12 | disposition home or self-care (01) ==
PROVIDERS: Emergency Provider Emergency Medicine; Visit Provider Emergency Medicine
DX: M54.50 Low back pain, unspecified (principal); R11.2 Nausea with vomiting, unspecified
CPT/HCPCS: 74176; 80048; 81001; 81025; 85025; 96374; 96375; 96376; 99284; J7030; A4216; J2405